=== PATIENT | female | born 1955 | race Caucasian/White ===

== ENCOUNTER 2018-05-04 13:07 | Emergency (ER) | payer OTHER, SELFPAY ==
[2018-05-04 13:10] VITALS: BP 155/102; PULSE 60; RESP 20; TEMP 36.9; O2SAT 97
--- NOTE | 2018-05-04 13:20 | ED.ALLEREA ---
HPI - Allergic Reaction General Chief complaint: Allergic Reaction Stated complaint: BEE STING, SWELLING/ITCHY,TOUNGE/THROAT ITCHY NUMB Time Seen by Provider: 05/04/18 13:20 Source: patient Mode of arrival: ambulatory Limitations: no limitations History of Present Illness HPI narrative: 62-year-old female here for evaluation of a bee sting to her right hand. Patient states she has never had a reaction to bee stings in the past. She states that she was stung on the back of her right hand. Went to the pharmacy and took 125 mg Benadryl. Has had pain and swelling to the back of her right hand. She also states that she started to developed some problems breathing and feeling like her tongue was becoming swollen. She has no problems tolerating oral intake. Speaking in full sentences. Related Data Home Medications Medication Instructions Recorded Confirmed MAGNESIUM (#ELITE MAGNESIUM) 1 tab PO DAILY #0 07/14/11 05/04/18 omega 7-apo-xxc-fish oil [Fish Oil] 1,000 mg PO Q DAY #0 09/28/11 05/04/18 multivitamin 1 tab PO DAILY #0 09/28/12 05/04/18 gabapentin [Neurontin] 900 mg PO QDAY #0 02/01/17 05/04/18 cyclobenzaprine 1 tab PO TID PRN 05/04/18 duloxetine 2 cap PO BEDTIME 05/04/18 05/04/18 meloxicam 1 tab PO DAILY 05/04/18 05/04/18 simvastatin 20 mg PO QPM 05/04/18 05/04/18 Allergies Allergy/AdvReac Type Severity Reaction Status Date / Time bee venom protein (honey bee) Allergy Severe Difficulty Verified 05/04/18 13:34 Swallowing Review of Systems Constitutional Denies body ache(s), Denies fatigue, Denies fever(s) and Denies headache(s) Eyes Denies change in vision, Denies irritation, Denies itchy eyes and Denies eye pain ENT Ears, Nose, Mouth, and Throat: Denies dizziness, Denies headache(s), Denies sinus pressure, Denies sore throat, Denies throat swelling and Reports tongue swelling Cardiovascular Denies chest pain and Reports dyspnea (?Very minor ?) Respiratory Denies cough, Reports dyspnea (?Very minor ?) and Denies wheezing Gastrointestinal Gastrointestinal: Denies diarrhea, Denies nausea and Denies vomiting Integumentary/Breasts Comments: Redness and swelling to the back of her right hand Neurologic Denies dizziness and Denies headache(s) Endocrine Denies fatigue Allergic/Immunologic Denies itchy eyes, Denies throat swelling, Reports tongue swelling and Denies wheezing [facility] Family History Father Diabetes mellitus Grandmother Diabetes mellitus Social History Smoking Status: Never smoker Exam Initial Vital Signs Initial Vital Signs: Vital Signs Temperature 98.5 F 05/04/18 13:10 Pulse Rate 60 05/04/18 13:10 Respiratory Rate 20 05/04/18 13:10 Blood Pressure 155/102 H 05/04/18 13:10 Pulse Oximetry 97 05/04/18 13:10 Const General: cooperative, healthy appearing, comfortable, well developed, well groomed and No acute distress Nutritional Appearance: average body habitus Orientation: alert, awake and oriented x3 HENMT Head: normal to inspection, normocephalic and atraumatic Nose: external nose normal Face and sinus: normal facial exam Mouth: oral mucosae normal, lip normal, tongue normal, oropharynx normal and moist mucous membranes Eyes General: appearance normal, both eyes and all related structures Conjunctivae: conjunctivae normal Sclera: sclerae normal Resp Effort & Inspection: normal respiratory effort Auscultation: clear to auscultation bilaterally Cardio Rate: regular rate Rhythm: regular rhythm Pulses: radial pulses present Skin Other: Swelling to the dorsum of the right hand from the MCP joints to just proximal to the wrist. Also with some erythema in this area. No stinger seen. Neuro Other: Sensation intact to light touch right upper extremity Extrem General: normal to inspection, full ROM and capillary refill normal Course Orders Ordered: Discontinued Medications Diphenhydramine HCl (Benadryl) 25 mg IV NOW ONE Stop: 05/04/18 13:21 Last Admin: 05/04/18 13:27 Dose: 25 mg Famotidine (Pepcid) 20 mg in 50 mls @ 200 mls/hr IV NOW ONE Stop: 05/04/18 13:34 Last Infusion: 05/04/18 14:01 Dose: 0 mls/hr Admin: 06/21/18 13:27 Dose: 200 mls/hr Methylprednisolone (Solu-Medrol 125 Mg Vial) 125 mg IV NOW ONE Stop: 05/04/18 13:21 Last Admin: 05/04/18 13:27 Dose: 125 mg Vital Signs - 8 hr 05/04/18 13:10 05/04/18 13:48 05/04/18 14:17 Temperature 98.5 F Pulse Rate 60 57 L 57 L Respiratory Rate 20 14 Blood Pressure 155/102 H Blood Pressure [Left Arm] 162/106 H 153/99 H Pulse Oximetry 97 100 100 05/04/18 14:30 Temperature Pulse Rate 59 L Respiratory Rate 11 L Blood Pressure Blood Pressure [Left Arm] 147/98 H Pulse Oximetry 100 MDM - Allergic Reaction MDM Narrative Medical decision making narrative: Patient received steroids and Benadryl here in the emergency department. She did not receive any epinephrine. She reported improvement/resolution in the itching in her feet and also the swelling sensation that she had her tongue. Right hand swelling improved somewhat however was still red. Patient was observed here in the emergency department for period of time. She stated that she felt like she could go home. I am comfortable sending her home as well. She was given return precautions. She was given care instructions with regard to the bee sting. She expressed understanding and agreement with plan Discharge Plan Departure Patient Disposition: Home, Self-Care Clinical Impression: Allergic reaction, Bee sting reaction Instructions: How to Care for an Insect Bite or Sting, DI for Insect Bites and Stings, DI for General Allergic Reactions Activity Restrictions/Additional Instructions: You can use Benadryl like we discussed. Would recommend that you keep ice on the back of your right hand. Return to the emergency department for any new or worsening symptoms Prescriptions: No Action MAGNESIUM (#ELITE MAGNESIUM) 1 tab PO DAILY Qty: 0 RF: 0 omega 2-slz-qdx-fish oil [Fish Oil] 1,000 mg (120 mg-180 mg) Capsule 1,000 mg PO Q DAY Qty: 0 RF: 0 multivitamin Tablet 1 tab PO DAILY Qty: 0 RF: 0 gabapentin [Neurontin] 300 MG capsule 900 mg PO QDAY Qty: 0 RF: 0 cyclobenzaprine 10 mg tablet 1 tab PO TID PRN (Reason: Spasms) RF: 0 meloxicam 15 mg tablet 1 tab PO DAILY RF: 0 simvastatin 20 mg tablet 20 mg PO QPM RF: 0 duloxetine 30 mg capsule,delayed release(DR/EC) 2 cap PO BEDTIME RF: 0
[2018-05-04] MEDS: FAMOTIDINE 20 MG/50 ML PIGGYBACK 200 MG IV (13:27)
[2018-05-04] MEDS: methylPREDNISolone 125 MG/2 ML VIAL IV (13:27)
[2018-05-04] MEDS: diphenhydrAMINE 50 MG/ML VIAL 25 MG IV (13:27)
[2018-05-04 13:48] VITALS: BP 162/106; PULSE 57; RESP 14; O2SAT 100
[2018-05-04 14:17] VITALS: BP 153/99; PULSE 57; O2SAT 100
[2018-05-04 14:30] VITALS: BP 147/98; PULSE 59; RESP 11; O2SAT 100
[2018-05-04 15:02] VITALS: BP 139/95; PULSE 60; RESP 16; O2SAT 96
== END 2018-05-04 15:00 | disposition home or self-care (01) ==
PROVIDERS: Emergency Provider Emergency Medicine; Family Provider Physician Assistant; PCP Physician Assistant
DX: T78.40XA Allergy, unspecified, initial encounter (principal); T63.441A Toxic effect of venom of bees, accidental (unintentional), initial encounter
CPT/HCPCS: 99283; J1200; J2930

== ENCOUNTER → 2018-10-25 15:16 | Outpatient (CLI) | payer OTHER, SELFPAY ==
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
== END ==
PROVIDERS: Family Provider Physician Assistant; PCP Physician Assistant; Visit Provider Student in an Organized Health Care Education/Training Program
DX: T14.90XA Injury, unspecified, initial encounter (principal); V89.2XXA Person injured in unspecified motor-vehicle accident, traffic, initial encounter; M19.012 Primary osteoarthritis, left shoulder; M51.34 Other intervertebral disc degeneration, thoracic region; M47.816 Spondylosis without myelopathy or radiculopathy, lumbar region
CPT/HCPCS: 72050; 72072; 72100; 72220; 73030; 73502

== ENCOUNTER → 2018-10-31 10:52 | Outpatient (CLI) | payer OTHER, SELFPAY ==
--- NOTE | 2018-10-31 | DI.MG.S_ITS ---
BILATERAL DIGITAL SCREENING MAMMOGRAM 3D/2D WITH CAD: 10/31/2018 CLINICAL: Routine screening. Family history of breast cancer. Comparison is made to exams dated: 09/27/2017 mammogram, 09/20/2016 mammogram, and 09/17/2015 mammogram - [facility]. There are scattered fibroglandular elements in both breasts. Current study was also evaluated with a Computer Aided Detection (CAD) system. There is a focal asymmetry in the left breast at 1 o'clock middle depth. No other significant masses, calcifications, or other findings are seen in either breast. IMPRESSION: INCOMPLETE: NEEDS ADDITIONAL IMAGING EVALUATION The focal asymmetry in the left breast is indeterminate. Additional views with possible ultrasound are recommended. This exam was interpreted at Station ID: [id number]. NOTE: For mammograms, a report in lay terms will be sent to the patient. Approximately 15% of breast malignancies will not be visualized mammographically. In the management of a palpable breast mass, a negative mammogram must not discourage biopsy of a clinically suspicious lesion. Electronically Signed By: Genesis arevalo/chhaya:10/31/2018 12:51:30 letter sent: Additional Imaging Needed ACR BI-RADS Category 0: Incomplete [id number]
== END ==
PROVIDERS: Family Provider Physician Assistant; PCP Physician Assistant; Visit Provider Physician Assistant
DX: Z12.31 Encounter for screening mammogram for malignant neoplasm of breast (principal); Z80.3 Family history of malignant neoplasm of breast
CPT/HCPCS: 77063; 77067

== ENCOUNTER → 2018-11-21 12:42 | Outpatient (CLI) | payer OTHER, SELFPAY ==
--- NOTE | 2018-11-21 | DI.MG.S_ITS ---
PROCEDURE: MM SPECIAL VIEW LT COMPARISON: [facility], , YUMI SCREENING MAMMO BI, 10/31/2018, 11:19. INDICATIONS: LEFT BREAST ADDITIONAL VIEWS FINDINGS: IMPRESSION: Dictated by: Oneal Webb M.D. on 11/21/2018 at 18:39 Approved by: Oneal Webb M.D. on 11/21/2018 at 18:39
--- NOTE | 2018-11-21 10:00 | DI.US.S_ITS ---
Patient Name: HÉCTOR VELIZ date: 1955 Sex: F Attending Physician: Melani Indications: Date: 11/21/2018 14:47 At the request of: BRUNO BRADFORD Procedure: US breast LT limited ULTRASOUND OF LEFT BREAST: 11/21/2018 CLINICAL: Patient returns today to evaluate a focal asymmetry in the left breast. Comparison is made to exams dated: 11/21/2018 mammogram, 10/31/2018 mammogram, and 09/27/2017 mammogram - [facility]. Ultrasound of the left breast was performed. Downey scale images of the real-time examination were reviewed. No abnormalities were seen sonographically in the left breast. IMPRESSION: NEGATIVE There is no sonographic evidence of malignancy. A 1 year screening mammogram is recommended. This exam was interpreted at Station ID: [id number]. Electronically Signed By: Oneal espinoza/chhaya:11/21/2018 16:49:10 letter sent: Normal Exam Ultrasound BI-RADS: 1 Negative
== END ==
PROVIDERS: Family Provider Physician Assistant; PCP Physician Assistant; Visit Provider Physician Assistant
DX: R92.8 Other abnormal and inconclusive findings on diagnostic imaging of breast (principal); N64.89 Other specified disorders of breast; Z80.3 Family history of malignant neoplasm of breast
CPT/HCPCS: 76642; 77065; G0279

== ENCOUNTER 2019-03-13 08:15 | Outpatient (RCR) | payer OTHER, SELFPAY ==
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
--- NOTE | 2019-02-20 16:35 | PT.OPPOC ---
Current Diagnoses Pain in left shoulder (02/19/19) Pain in left hip (02/19/19) Cervicalgia (02/19/19) Provider Visit Care Team Role Provider Type Chayito Polo PA-C Family Provider Advanced Sports Team Manager Primary Care Provider Specialty: Internal Medicine Address: [address] [place] [address], [id number] Email: Yajaira Woodson PA-C Attending Provider Physician Specialty: Internal Medicine Address: [address] [place] [address], [id number] Email: Plan Of Care PT-OP-T Assessment and Plan Start: 11/24/18 16:35 Freq: Status: Active Protocol: Document 02/19/19 09:11 LRN (Rec: 02/19/19 09:54 LRN [id number]) Physical Therapy Assessment Goals Four Impairment L hip and LB pain Residential Goal (LTG) Pt will demonstrate decrease pain with improved L hip mobility and strength and improved function per improved Oswestry Disability Index Score. LTG Duration 02/20/19 (02/20/19: GOAL met for pain & NATTY) Three Impairment Decreased L shoulder mobility and strength Short Term Goal (STG) Improve L shoulder painfree AROM. STG Duration 12/29/18 (01/23/19: Goal met for IR/ER). Residential Goal (LTG) Improve L shoulder strength and function per UE Quick Dash Score. LTG Duration 02/20/19 Two Impairment Decreased neck mobility and strength Short Term Goal (STG) Pt will demonstrate improved neck mobility. STG Duration 12/29/18 Residential Goal (LTG) Improve neck strength and function per improved Neck Disability score. LTG Duration 02/20/19 One Impairment Pt lacks self care HEP. Trim Setter Goal (LTG) Pt will be independent in a self care HEP. LTG Duration 02/20/19 Progress Towards Goals Progress Comments Goal #1: Slow progression of HEP due to pt continued c/o soreness in L shoulder & low back. Goal #2 Neck mobility and function (per NDI) has improved. Goal #3 No significant change with UE function per UE QUICKdash. L shoulder strength not assessed. ROM pain is same. Goal #4 GOAL met for pain & NATTY improvement. No pain in L hip, pain now in R hip in area of lipoma. Assessment Summary Assessment The pt has shown some improvement in that she no longer has L hip pain and her pain intensity is decreased in all areas (neck, L shoulder, L hip). She has had onset of now R hip pain that is generally as intense as the pain in her other areas (5/10) . Her neck and back function has improved per Neck and Low Back Disability Index scores. She is beginning to return to her recreational activities ( gardening as tolerated) and has attended one aerobic ex class at the local swimming pool. With return to activities her overall R hip/ back and L shoulder pain has been variable, but at its best pain it is less overall, and at its worst is unchanged. Since the pt has shown improvement in neck/back function it is recommended she continue with skilled physical therapy to work towards further reduction of her pain, improvement in L shoulder and bilateral hip strength as well as mobility, for her return to gardening and household work activities without limitation. Physical Therapy Plan Frequency and Duration Frequency of Treatment 2x/Week Plan of Care Start Date 11/28/18 Plan of Care End Date 04/20/19 Therapeutic Interventions Therapeutic Interventions Aquatic Therapy Balance Training Home Exercise Program Joint Mobilizations Manual Therapy Neuromuscular Re-education Patient/Caregiver Education Self-Care/Home Management Soft Tissue Mobilization Taping Therapeutic Exercises Modalities Cold Pack/Ice Massage Hot Packs Other Therapeutic Interventions E-Stim except in areas of skin carcinomas. Next Visit Focus/Plan Next Note Type Treatment Note Next Visit Plan Check hip, neck, shoulder strength and mobility. Review HEP issued and monitor active hip ext stretch for isolation from trunk extensors . Issue hip ext strengthening & shoulder IR/ER strengthening. Plan of Care Dates Plan of Care Start Date 11/28/18 Plan of Care End Date 04/20/19 Please Sign and Return: I have reviewed this Plan of Care and certify that the skilled therapy services above are required to meet the patient?s needs. Physician Signature Date Printed Name and Credentials Clinical Instructor Signature Printed Name and Credentials
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
== END 2019-03-28 12:37 | disposition home or self-care (01) ==
LOC: PHYS 08:15
PROVIDERS: Family Provider Physician Assistant; PCP Physician Assistant; Visit Provider Student in an Organized Health Care Education/Training Program
DX: M54.2 Cervicalgia (principal); M25.512 Pain in left shoulder; M25.552 Pain in left hip
CPT/HCPCS: 97010; 97014; 97032; 97035; 97110; 97140; 97162; 97535; G0283

== ENCOUNTER → 2019-05-03 10:09 | Outpatient (CLI) | payer OTHER, SELFPAY ==
--- NOTE | 2019-05-03 | DI.RAD.S_ITS ---
PROCEDURE: XR FOOT LT MIN 3V INDICATIONS: LEFT FOOT PAIN TECHNIQUE: 3 views of the foot were acquired. COMPARISON: [facility], , FOOT 3V LEFT, 03/02/2012, 10:17. FINDINGS: Bones: There is an obliquely oriented mildly comminuted fracture evident involving the mid left 5th metatarsal bone. No intra-articular involvement is appreciated. There is no dislocation. There is a subtle vertically oriented lucency evident involving the base of the 4th proximal phalanx which may represent an additional fracture. There is no dislocation. Mild degenerative changes of the midfoot joints are present. Soft tissues: No tibiotalar joint effusion. Soft tissue swelling about the foot is evident. IMPRESSION: 1. Comminuted left 5th metatarsal fracture. 2. Possible subtle fracture involving the base of the proximal phalanx of the 4th toe. Please correlate clinically for focal point tenderness. Dictated by: Nathen Arndt M.D. on 05/03/2019 at 10:52 Approved by: Nathen Arndt M.D. on 05/03/2019 at 10:54
== END ==
PROVIDERS: Family Provider Physician Assistant; PCP Physician Assistant; Visit Provider Internal Medicine
DX: M79.672 Pain in left foot (principal); S92.352A Displaced fracture of fifth metatarsal bone, left foot, initial encounter for closed fracture
CPT/HCPCS: 73630

== ENCOUNTER → 2019-11-19 11:47 | Outpatient (CLI) | payer OTHER, SELFPAY ==
--- NOTE | 2019-11-19 | DI.RAD.S_ITS ---
PROCEDURE: XR HIP W PEL IF DONE RT 2V INDICATIONS: RIGHT HIP PAIN TECHNIQUE: AP pelvis with lateral view(s) of the right hip. [facility], [facility], [facility], 15:44. FINDINGS: Bones: No fractures or dislocations. Pelvic ring appears intact. No suspicious bony lesions. Soft tissues: The visualized bowel gas pattern is normal. No suspicious soft tissue calcifications. IMPRESSION: No trauma known, source of asymmetric right hip pain is not identified. Dictated by: Theo Garrido M.D. on 11/19/2019 at 15:51 Approved by: Theo Garrido M.D. on 11/19/2019 at 15:51
== END ==
PROVIDERS: PCP Physician Assistant; Visit Provider Physician Assistant
DX: M25.551 Pain in right hip (principal)
CPT/HCPCS: 73502

== ENCOUNTER → 2019-12-03 12:55 | Outpatient (CLI) | payer OTHER, SELFPAY ==
--- NOTE | 2019-12-03 | DI.MRI.S_ITS ---
PROCEDURE: MR LUMBAR SPINE WO CON INDICATIONS: LUMBAGO WITH SCIATICA RIGHT SIDE TECHNIQUE: Noncontrast sagittal T1 spin echo and T2 fast echo, sagittal STIR, axial T1 and T2 fast spin echo through the lumbar spine. In cases with scoliosis, additional coronal T2 fast spin echo may be performed. COMPARISON: [facility], , L-SPINE WITHOUT CONTRAST, 04/22/2016, 9:22. FINDINGS: Image quality: Excellent. Alignment and Curvature: Trace retrolisthesis of L3 on L4. Bone Marrow: No fracture. Multilevel degenerative endplate sclerosis and spurring. Diffuse facet arthropathy. Spinal Cord: Conus medullaris terminates at the L1-L2 level. Visualized cord demonstrates normal signal and size. Paraspinous Soft Tissues: No paravertebral masses. L1-L2: Normal appearance. L2-L3: Mild central canal narrowing. Partial effacement of both lateral recesses with bilaterally symmetric appearance. Mild bilateral foraminal stenoses. L3-L4: No central canal narrowing. Partial effacement of both lateral recesses with bilaterally symmetric appearance. No definite foraminal stenosis L4-L5: No central canal or lateral recess narrowing. Mild bilateral foraminal stenoses. L5-S1: No canal or lateral recess narrowing. No foraminal stenosis identified IMPRESSION: Trace retrolisthesis of L3 on L4. Diffuse lumbar spondylosis and facet arthropathy No high-grade canal or foraminal narrowing Mild bilateral foraminal stenoses at L2-L3 and L4-L5 Dictated by: Amandeep Figueredo M.D. on 12/03/2019 at 16:40 Approved by: Amandeep Figueredo M.D. on 12/03/2019 at 16:47
== END ==
PROVIDERS: PCP Physician Assistant; Visit Provider Physician Assistant
DX: M54.41 Lumbago with sciatica, right side (principal); M47.816 Spondylosis without myelopathy or radiculopathy, lumbar region; M48.061 Spinal stenosis, lumbar region without neurogenic claudication; M85.88 Other specified disorders of bone density and structure, other site; Z78.0 Asymptomatic menopausal state
CPT/HCPCS: 72148; 77080

== ENCOUNTER → 2019-12-25 13:38 | Outpatient (ROUT) | payer OTHER, SELFPAY ==
[2019-12-25 14:25] LABS: Alanine Aminotransferase 22 IU/L (<35); Albumin 4.4 g/dL (3.5-5.0); Albumin Globulin Ratio 1.6 (1.0-2.8); Alkaline Phosphatase 58 U/L (38-126); Aspartate Aminotransferase 29 IU/L (14-36); BUN Creatinine Ratio 17.1 (6-22); Bilirubin Total 0.9 mg/dL (0.2-1.3); Blood Urea Nitrogen 12 mg/dL (7-17); Calcium 9.6 mg/dL (8.4-10.2); Carbon Dioxide 31 mmol/L (22-32); Chloride 104 mmol/L (98-107); Cholesterol 208 mg/dL (140-199); Estimated Glomerular Filt Rate > 60.0 mL/min (>60); Globulin 2.7 g/dL (1.7-4.1); Glucose 96 mg/dL (80-110); HDL Cholesterol 50 mg/dL (40-60); HEMOLYSIS 17 (0-50); LDL Cholesterol Calculated 110 mg/dL (<100); Potassium 4.3 mmol/L (3.4-5.1); Sodium 141 mmol/L (137-145); Total Protein 7.1 g/dL (6.3-8.2); Triglycerides 240 mg/dL (35-150)
[2019-12-25 15:42] LABS: Add Manual Diff / Slide Review NO; Basophils Absolute Auto 100 /uL (0-100); Basophils Percent Auto 1.1 % (0-2); Eosinophils Absolute Auto 100 /uL (0-450); Eosinophils Percent Auto 1.4 % (2-4); Hematocrit 46.3 % (36-46); Hemoglobin 15.7 g/dL (12.0-16.0); Lymphocytes Absolute Auto 1800 /uL (1100-4500); Lymphocytes Percent Auto 39.1 % (25-40); Mean Corpuscular HGB Conc 33.8 % (30-36); Mean Corpuscular Hemoglobin 31.7 PG (26-34); Mean Corpuscular Volume 93.7 fL (80-100); Monocytes Absolute Auto 300 /uL (0-900); Neutrophils Absolute Auto 2400 /uL (1500-7000); Neutrophils Percent Auto 51.4 % (50-75); Platelet Count 134 X10^3/uL (150-400); Red Blood Cell Count 4.94 X10^6/uL (4.0-5.2); Red Cell Distribution Width 13.3 % (11.6-14.8); White Blood Cell Count 4.7 X10^3/uL (4.5-11.0)
== END ==
PROVIDERS: PCP Physician Assistant; Visit Provider Physician Assistant
DX: E78.2 Mixed hyperlipidemia (principal)
CPT/HCPCS: 80053; 80061; 85025

== ENCOUNTER 2020-01-22 10:30 | Outpatient (RCR) | payer OTHER, SELFPAY ==
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
--- NOTE | 2019-11-29 17:06 | PT-OP ANOTE ---
Pt cancelled due to snow
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
== END 2020-06-04 10:42 ==
LOC: PHYS 10:30
PROVIDERS: PCP Physician Assistant; Visit Provider Physician Assistant
DX: M54.16 Radiculopathy, lumbar region (principal); M62.81 Muscle weakness (generalized); M25.551 Pain in right hip; M79.604 Pain in right leg
CPT/HCPCS: 97014; 97032; 97110; 97140; 97162; 97535; G0283

== ENCOUNTER → 2020-10-22 17:11 | Outpatient (CLI) | payer OTHER, SELFPAY ==
--- NOTE | 2020-10-22 | DI.MG.S_ITS ---
BILATERAL DIGITAL SCREENING MAMMOGRAM 3D/2D WITH CAD: 10/22/2020 CLINICAL: Routine screening. Family history of breast cancer. Comparison is made to exams dated: 11/21/2018 mammogram, 10/31/2018 mammogram, 09/27/2017 mammogram, 09/20/2016 mammogram, and 09/17/2015 mammogram - [facility]. There are scattered fibroglandular elements in both breasts. Current study was also evaluated with a Computer Aided Detection (CAD) system. There are benign post operative findings in the right breast. No significant masses, calcifications, or other findings are seen in either breast. There has been no significant interval change. IMPRESSION: BENIGN There is no mammographic evidence of malignancy. A 1 year screening mammogram is recommended. This exam was interpreted at Station ID: [id number]. NOTE: For mammograms, a report in lay terms will be sent to the patient. Approximately 15% of breast malignancies will not be visualized mammographically. In the management of a palpable breast mass, a negative mammogram must not discourage biopsy of a clinically suspicious lesion. Electronically Signed By: Oneal espinoza/chhaya:10/23/2020 08:00:38 letter sent: Normal Exam ACR BI-RADS Category 2: Benign Finding(s) [id number]
== END ==
PROVIDERS: PCP Physician Assistant; Referring Provider Physician Assistant; Visit Provider Physician Assistant
DX: Z12.31 Encounter for screening mammogram for malignant neoplasm of breast (principal); Z80.3 Family history of malignant neoplasm of breast
CPT/HCPCS: 77063; 77067

== ENCOUNTER → 2021-02-25 09:53 | Outpatient (CLI) | payer OTHER, SELFPAY ==
[2021-02-25 11:14] LABS: Add Manual Diff / Slide Review NO; Basophils Absolute Auto 0 /uL (0-100); Basophils Percent Auto 0.8 % (0-2); Eosinophils Absolute Auto 200 /uL (0-450); Eosinophils Percent Auto 3.9 % (2-4); Hemoglobin 14.6 g/dL (12.0-16.0); Lymphocytes Absolute Auto 1800 /uL (1100-4500); Lymphocytes Percent Auto 39.1 % (25-40); Mean Corpuscular HGB Conc 33.3 % (30-36); Mean Corpuscular Hemoglobin 30.8 PG (26-34); Mean Corpuscular Volume 92.7 fL (80-100); Monocytes Absolute Auto 300 /uL (0-900); Monocytes Percent Auto 7.4 % (3-14); Neutrophils Absolute Auto 2200 /uL (1500-7000); Neutrophils Percent Auto 48.8 % (50-75); Platelet Count 125 X10^3/uL (150-400); Red Blood Cell Count 4.74 X10^6/uL (4.0-5.2); Red Cell Distribution Width 13.1 % (11.6-14.8); White Blood Cell Count 4.5 X10^3/uL (4.5-11.0)
[2021-02-25 11:48] LABS: Alanine Aminotransferase 19 IU/L (<35); Albumin 4.1 g/dL (3.5-5.0); Albumin Globulin Ratio 1.7 (1.0-2.8); Alkaline Phosphatase 61 U/L (38-126); Aspartate Aminotransferase 26 IU/L (14-36); BUN Creatinine Ratio 25.4 (6-22); Bilirubin Total 0.6 mg/dL (0.2-1.3); Blood Urea Nitrogen 16 mg/dL (7-17); Calcium 9.2 mg/dL (8.4-10.2); Carbon Dioxide 24 mmol/L (22-32); Chloride 107 mmol/L (98-107); Cholesterol 162 mg/dL (140-199); Estimated Glomerular Filt Rate > 60.0 mL/min (>60); Globulin 2.4 g/dL (1.7-4.1); Glucose 90 mg/dL (80-110); HDL Cholesterol 63 mg/dL (40-60); HEMOLYSIS < 15 (0-50); LDL Cholesterol Calculated 75 mg/dL (<100); Potassium 4.2 mmol/L (3.4-5.1); Sodium 139 mmol/L (137-145); Total Protein 6.5 g/dL (6.3-8.2); Triglycerides 118 mg/dL (35-150)
== END ==
PROVIDERS: PCP Physician Assistant; Referring Provider Physician Assistant; Visit Provider Physician Assistant
DX: E78.2 Mixed hyperlipidemia (principal)
CPT/HCPCS: 36415; 80053; 80061; 85025

== ENCOUNTER 2021-06-19 16:11 | Emergency (ER) | payer OTHER, SELFPAY ==
[2021-06-19 16:20] VITALS: BP 170/96; PULSE 74; O2SAT 96
--- NOTE | 2021-06-19 16:21 | ED.ALLEREA ---
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 She states she started feeling some thickening and closure of her throat and had no access to her epinephrine so she presented here. She denies any dizziness, weakness or lightheadedness. She denies swelling of her face, lips or tongue. She denies any trouble breathing. She has had no rash or urticaria. She denies nausea, vomiting or diarrhea Related Data Home Medications Medication Instructions Recorded Confirmed MAGNESIUM (#ELITE MAGNESIUM) 1 tab PO DAILY #0 07/14/11 08/28/19 omega 9-qjw-soj-fish oil 1,000 mg 1,000 mg PO Q DAY #0 09/28/11 08/28/19 (120 mg-180 mg) capsule (Fish Oil) multivitamin 1 tab PO DAILY #0 09/28/12 08/28/19 gabapentin 300 mg capsule 900 mg PO QDAY #0 02/01/17 08/28/19 (Neurontin) cyclobenzaprine 10 mg tablet 1 tab PO TID PRN 05/04/18 08/28/19 duloxetine 30 mg capsule,delayed 2 cap PO BEDTIME 05/04/18 08/28/19 release meloxicam 15 mg tablet 1 tab PO DAILY 05/04/18 08/28/19 simvastatin 20 mg tablet 20 mg PO QPM 05/04/18 08/28/19 epinephrine [EpiPen 2-Harsha] IM 08/28/19 08/28/19 Previous Rx's Medication Instructions Recorded epinephrine 0.3 mg/0.3 mL 0.3 mg IM Q5-15M PRN #2 ea 06/19/21 injection, auto-injector (EpiPen 2-Harsha) prednisone 20 mg tablet 20 mg PO DAILY #5 tab 06/19/21 Allergies Allergy/AdvReac Type Severity Reaction Status Date / Time bee venom protein (honey bee) Allergy Severe Difficulty Verified 06/19/21 16:24 Swallowing Review of Systems Review of Systems Narrative: GENERAL: Denies chills, fatigue, malaise, fever, sweats. HEENT: See HPI RESPIRATORY: See HP CARDIOVASCULAR: Denies chest pain, palpitations, orthopnea, edema, GASTROINTESTINAL: Denies nausea, vomiting, abdominal pain, diarrhea, constipation, melena. : Denies dysuria, frequency, incontinence, hematuria, urinary retention. MUSCULOSKELETAL: denies weakness, joint pain, or bony pain SKIN: Denies rash, skin lesions, or other NEUROLOGIC: Denies weakness, headache, numbness, change in speech, confusion, seizures, incoordination. PSYCHIATRIC: No concerning psychosocial issues. 12 point review of systems is negative except for those stated above Patient History Medical History Age related osteoporosis Fibromyalgia Surgical History Status post right breast lumpectomy Family History Father Diabetes mellitus Grandmother Diabetes mellitus Social History Smoking Status: Never smoker Smoking Status: Never smoker alcohol intake frequency: a few times a week Substance Use Type: does not use Exam Narrative Exam Narrative: GENERAL: [65] year old patient appears stated age. Well-developed patient, in mild distress. HEAD: Atraumatic. Normocephalic. EYES: Pupils equal round and reactive. Extraocular motions intact. No scleral icterus. No injection or drainage. ENT: Nose without bleeding, purulent drainage. Throat without erythema, tonsillar hypertrophy or exudate. Airway patent. NECK: Trachea midline. Non tender CARDIOVASCULAR: Regular rate and rhythm without murmurs, gallops, or rubs. RESPIRATORY: Clear to auscultation. Breath sounds equal bilaterally. No wheezes, rales, or rhonchi. GASTROINTESTINAL: Abdomen soft, non-tender, nondistended. EXTREMITIES: No edema or joint tenderness. BACK: Nontender without deformity or crepitance. No flank tenderness. NEURO: AOx3. SKIN: No rash or erythema of visible areas Initial Vital Signs Initial Vital Signs: Vital Signs Pulse Rate 74 06/19/21 16:20 Blood Pressure 170/96 H 06/19/21 16:20 Pulse Oximetry 96 06/19/21 16:20 Course Orders Ordered: Discontinued Medications Diphenhydramine HCl (Diphenhydramine 50 Mg/Ml Vial) 25 mg IV NOW ONE Stop: 06/19/21 16:22 Last Admin: 06/19/21 16:30 Dose: 25 mg Documented by: VERÓNICA Epinephrine HCl (Epinephrine 1 Mg/Ml) 0.5 mg IM NOW ONE Stop: 06/19/21 16:22 Last Admin: 06/19/21 16:26 Dose: 0.5 mg Documented by: VERÓNICA Methylprednisolone (Methylprednisolone 125 Mg/2 Ml Vial) 125 mg IV NOW ONE Stop: 06/19/21 16:22 Last Admin: 06/19/21 16:30 Dose: 125 mg Documented by: VERÓNICA Reevaluation(s) Reevaluation #1: Patient observed for 90 minutes after administration of above-stated therapies. She has no ongoing symptoms and feels great. Extensive return precautions given medications sent to pharmacy. Vital Signs Vital signs: Vital Signs - 8 hr 06/19/21 16:20 06/19/21 16:22 06/19/21 16:30 Temperature 98.6 F Pulse Rate 74 67 71 Respiratory Rate 16 19 Blood Pressure 170/96 H 170/96 H 163/81 H Pulse Oximetry 96 97 95 06/19/21 16:52 06/19/21 17:00 06/19/21 17:30 Temperature Pulse Rate 70 70 77 Respiratory Rate 21 20 25 H Blood Pressure 151/81 H 133/70 141/66 H Pulse Oximetry 98 96 98 Discharge Plan Departure Patient Disposition: Home Clinical Impression: Allergic reaction Qualifiers: Encounter type: initial encounter Qualified Code(s): T78.40XA - Allergy, unspecified, initial encounter Instructions: Anaphylaxis Activity Restrictions/Additional Instructions: *You have been diagnosed with [allergic reaction due to bee sting] *What to do: *Please continue to take your regular medications as directed. [x ] New medication prescriptions sent to your pharmacy: [[facility]] [ ] New medication written as a paper prescription [ ] No new medications given *Please follow up with your primary care provider in 2-3 days, call for an appointment. Let them know you were seen in the Emergency Department and that we ask that you be seen in follow up. We will electronically transmit a record of today's note if your PCP is in our system *If you do not have a primary care provider please contact the [facility] Resource line at [phone]. They will ask some questions about your medical history and help get you set up with a doctor in the community. *Return to Emergency Department if you should have any new, worsening or concerning symptoms, such as [fever greater than 101 F, shaking chills, worsening pain, persistent vomiting or other bothersome symptoms] Prescriptions: New epinephrine [EpiPen 2-Harsha] 0.3 mg/0.3 mL auto-injector 0.3 mg IM Q5-15M PRN (Reason: anaphylaxis) Qty: 2 RF: 0 prednisone 20 mg tablet 20 mg PO DAILY Qty: 5 RF: 0 No Action epinephrine IM RF: 0 MAGNESIUM (#ELITE MAGNESIUM) 1 tab PO DAILY Qty: 0 RF: 0 omega 4-qxg-suw-fish oil [Fish Oil] 1,000 mg (120 mg-180 mg) Capsule 1,000 mg PO Q DAY Qty: 0 RF: 0 multivitamin Tablet 1 tab PO DAILY Qty: 0 RF: 0 gabapentin [Neurontin] 300 MG capsule 900 mg PO QDAY Qty: 0 RF: 0 cyclobenzaprine 10 mg tablet 1 tab PO TID PRN (Reason: Spasms) RF: 0 meloxicam 15 mg tablet 1 tab PO DAILY RF: 0 simvastatin 20 mg tablet 20 mg PO QPM RF: 0 duloxetine 30 mg capsule,delayed release(DR/EC) 2 cap PO BEDTIME RF: 0 Referrals: Chayito Polo PA-C [Primary Care Provider] -
[2021-06-19 16:22] VITALS: BP 170/96; PULSE 67; RESP 16; TEMP 37; O2SAT 97; BMI 29.0
[2021-06-19] MEDS: EPINEPHrine 1 MG/ML 0.5 MG IM (16:26)
[2021-06-19 16:30] VITALS: BP 163/81; PULSE 71; RESP 19; O2SAT 95
[2021-06-19] MEDS: methylPREDNISolone 125 MG/2 ML VIAL IV (16:30)
[2021-06-19] MEDS: diphenhydrAMINE 50 MG/ML VIAL 25 MG IV (16:30)
[2021-06-19 16:52] VITALS: BP 151/81; PULSE 70; RESP 21; O2SAT 98
[2021-06-19 17:00] VITALS: BP 133/70; PULSE 70; RESP 20; O2SAT 96
[2021-06-19 17:30] VITALS: BP 141/66; PULSE 77; RESP 25; O2SAT 98
== END 2021-06-19 17:46 | disposition home or self-care (01) ==
PROVIDERS: Emergency Provider Emergency Medicine; PCP Physician Assistant
DX: T63.441A Toxic effect of venom of bees, accidental (unintentional), initial encounter (principal); T78.2XXA Anaphylactic shock, unspecified, initial encounter
CPT/HCPCS: 96372; 96374; 96375; 99284; J0171; J1200; J2930

== ENCOUNTER → 2021-08-09 10:09 | Outpatient (CLI) | payer OTHER, SELFPAY ==
[2021-08-09 10:35] LABS: COVID19 -Nasal RAPID Negative (Negative)
== END ==
PROVIDERS: PCP Physician Assistant; Visit Provider Physician Assistant
DX: Z20.822 Contact with and (suspected) exposure to COVID-19 (principal); J02.9 Acute pharyngitis, unspecified; R05 Cough
CPT/HCPCS: 87635

== ENCOUNTER → 2021-10-23 16:39 | Outpatient (CLI) | payer OTHER, SELFPAY ==
--- NOTE | 2021-10-23 16:40 | DI.MG.S_ITS ---
BILATERAL DIGITAL SCREENING MAMMOGRAM 3D/2D WITH CAD: 10/23/2021 CLINICAL: Routine screening. Family history of breast cancer. Comparison is made to exams dated: 10/22/2020 mammogram, 11/21/2018 ultrasound, and 10/31/2018 mammogram - [facility]. There are scattered fibroglandular elements in both breasts. Current study was also evaluated with a Computer Aided Detection (CAD) system. There are benign post operative findings in the right breast. No significant masses, calcifications, or other findings are seen in either breast. There has been no significant interval change. IMPRESSION: BENIGN There is no mammographic evidence of malignancy. A 1 year screening mammogram is recommended. This exam was interpreted at Station ID: [id number]. NOTE: For mammograms, a report in lay terms will be sent to the patient. Approximately 15% of breast malignancies will not be visualized mammographically. In the management of a palpable breast mass, a negative mammogram must not discourage biopsy of a clinically suspicious lesion. Electronically Signed By: Oneal espinoza/chhaya:10/23/2021 17:02:06 letter sent: Normal Exam ACR BI-RADS Category 2: Benign Finding(s) 3342F
== END ==
PROVIDERS: PCP Physician Assistant; Referring Provider Physician Assistant; Visit Provider Physician Assistant
DX: Z12.31 Encounter for screening mammogram for malignant neoplasm of breast (principal); Z80.3 Family history of malignant neoplasm of breast
CPT/HCPCS: 77063; 77067

== ENCOUNTER → 2022-01-20 09:15 | Outpatient (CLI) | payer OTHER, SELFPAY ==
[2022-01-20 10:23] LABS: COVID19 -Nasal RAPID Negative (Negative)
== END ==
PROVIDERS: PCP Physician Assistant; Visit Provider Surgery
DX: Z01.812 Encounter for preprocedural laboratory examination (principal); Z20.822 Contact with and (suspected) exposure to COVID-19
CPT/HCPCS: 87635; C9803

== ENCOUNTER 2022-01-21 10:16 | Day surgery (SDC) | payer OTHER, SELFPAY ==
--- NOTE | 2022-01-21 | PATH_ITS ---
[facility] Accession Number: [id number] . 01 Material submitted: . PART A: colon - SIGMOID POLYP PART B: rectum - RECTAL POLYP . 02 Diagnosis: A. Sigmoid Colon, Polyp, Biopsy: Hyperplastic polyp. . B. Rectum, Polyp, Biopsy: Tubular adenoma. [facility] 01/25/2022 1316 Local . 02 Electronically signed: . Taya Mak MD, Pathologist NPI- [id number] . 01 Gross description: . Part A: SIGMOID POLYP: Received in formalin are 2 fragment(s) of tyson, soft tissue measuring 0.3 x 0.3 x 0.3 cm to 0.2 x 0.2 x 0.1 cm submitted entirely in 1 cassette(s) Part B: RECTAL POLYP: Received in formalin is 1 fragment(s) of tyson, soft tissue measuring 0.3 x 0.2 x 0.2 cm submitted entirely in 1 cassette(s) /[facility] 01/24/2022 1835 Local . 02 Pathologist provided ICD-10: D12.8 . 02 CPT . 719172, 059170 Specimen Comment: A courtesy copy of this report has been sent to [phone] Performed at: 01 [facility] [address] [facility], [place], [place] [id number] MD Aleksey Chau MD Phone: [phone] Performed at: 02 [facility] [address] [place], [place] [id number] MD Taya Mak MD Phone: [phone]
[2022-01-21 10:31] VITALS: BP 149/91; PULSE 67; RESP 16; TEMP 36.3; O2SAT 98; BMI 29.0
[2022-01-21] MEDS: LACTATED RINGERS 1,000 ML 42 ML IV (10:38)
--- NOTE | 2022-01-21 10:45 | PM.HP.1 ---
History of Present Illness History of Present Illness Date Patient Seen: 01/21/22 Time Patient Seen: 10:45 Chief complaint: SDC Narrative: The patient is a 66-year-old woman who is due for colon cancer screening. She believes she had a colonoscopy about 10 years ago. She believes she may have had polyps on a prior colonoscopy. She thinks her mom may have had colon cancer but she is not sure what type exactly it was. She denies rectal bleeding or melena. Patient History Medical History Age related osteoporosis Fibromyalgia Surgical History Status post right breast lumpectomy Family & Social History Family History Father Diabetes mellitus Grandmother Diabetes mellitus Social History: household members friend(s) Tobacco & Substance use: Smoking Status Never smoker alcohol intake current alcohol intake frequency a few times a week Substance Use Type does not use Meds Home Medications and Allergies Home Medications Medication Instructions Recorded Confirmed Type MAGNESIUM (#ELITE MAGNESIUM) 1 tab PO DAILY #0 07/14/11 01/21/22 History omega 4-ytz-kxi-fish oil 1,000 mg 1,000 mg PO Q DAY #0 09/28/11 01/21/22 History (120 mg-180 mg) capsule (Fish Oil) multivitamin 1 tab PO DAILY #0 09/28/12 01/21/22 History gabapentin 300 mg capsule 900 mg PO QDAY #0 02/01/17 01/21/22 History (Neurontin) duloxetine 30 mg capsule,delayed 2 cap PO BEDTIME 05/04/18 01/21/22 History release simvastatin 20 mg tablet 20 mg PO QAM 05/04/18 01/21/22 History epinephrine [EpiPen 2-Harsha] IM 08/28/19 08/09/21 History epinephrine 0.3 mg/0.3 mL 0.3 mg (0.3 mL) IM Q5-15M PRN #2 ea 06/19/21 08/09/21 Rx injection, auto-injector (EpiPen 2-Harsha) Allergies Allergy/AdvReac Type Severity Reaction Status Date / Time bee venom protein (honey bee) Allergy Severe Difficulty Verified 08/09/21 10:00 Swallowing Exam Vital Signs (past 8 hours): - 01/21/22 10:31 Temperature 97.4 F L Pulse Rate 67 Respiratory Rate 16 Blood Pressure 149/91 H Pulse Oximetry 98 Oxygen Delivery Method Room Air Const General: healthy appearing Resp Effort & Inspection: normal respiratory effort GI Palpation: soft Assessment & Plan Assessment and plan (1) Colon cancer screening: Status: Acute Plan Risks and benefits of colonoscopy reviewed. We will proceed. COVID-19 COVID-19 status: Negative Result date/Date tested (Pos, Neg/Pending): 01/20/22 Time Spent With Patient Critical Care time: I spent a total of [] minutes of critical care time on this patient's care today; this time is exclusive of procedural time.
[2022-01-21] MEDS: MIDAZOLAM 5 MG/5 ML VIAL IV (11:24)
[2022-01-21] MEDS: fentaNYL 250 MCG/5 ML INJ IV (11:24)
--- NOTE | 2022-01-21 11:39 | PM.OP.COLON ---
Operative Date/Time/Diagnoses Date of procedure: 01/21/22 Time of procedure: 11:39 Pre-op diagnosis: Colon cancer screening Post-op diagnosis: same Procedure & Clinicians Study performed: Colonoscopy Same procedure as scheduled: Yes Surgeon: Holden Agrawal Procedure Notes SCOAP/Timeout: Yes Procedure in detail: Procedure: The patient was brought to the endoscopy suite, placed in left lateral decubitus position. The patient was connected to monitoring devices. A time-out was performed. Sedation was administered. Once the patient was adequately sedated, a digital rectal exam was performed and was normal. The scope was then inserted and advanced to the cecum where the appendiceal orifice was identified and photographed. The scope was then slowly withdrawn over greater than 6 minutes. Mucosa was thoroughly inspected. There were 2 small polyps in the sigmoid colon removed with cold forceps. There was 1 small polyp in the rectum removed with cold forceps. The scope was retroflexed in the rectum. No abnormalities noted. The scope was straightened and removed. The patient was awakened and brought to recovery. Versed: 9 mg Fentanyl: 175 mcg EBL: 5 mL Findings: Small polyps in the sigmoid and rectum. Scope withdrawal time: 11 Sedation minutes: 48 Post-procedure Recommendations: Will call with biopsy results Disposition: PACU
[2022-01-21 11:41] VITALS: BP 123/48; PULSE 61; RESP 16; TEMP 36.7; O2SAT 96
[2022-01-21 11:46] VITALS: BP 90/60; PULSE 69; RESP 16; O2SAT 96
[2022-01-21 11:51] VITALS: BP 123/80; PULSE 62; RESP 14; O2SAT 96
== END 2022-01-21 12:15 | disposition home or self-care (01) ==
PROVIDERS: PCP Physician Assistant; Referring Provider Surgery; Visit Provider Surgery
PROC: 0DJD8ZZ Inspection of Lower Intestinal Tract, Via Natural or Artificial Opening Endoscopic (ICD-10-PCS; CPT 45378; principal; 2022-01-21 11:30)
DX: Z12.11 Encounter for screening for malignant neoplasm of colon (principal); D12.8 Benign neoplasm of rectum
CPT/HCPCS: 45380; 99152; 99153; J2250; J3010

== ENCOUNTER → 2022-01-29 11:48 | Outpatient (CLI) | payer OTHER, SELFPAY | PROVIDERS: PCP Physician Assistant; Visit Provider Nurse Practitioner Family | DX: R30.0 Dysuria (principal); N94.9 Unspecified condition associated with female genital organs and menstrual cycle | CPT/HCPCS: 87077; 87086; 87186; 87210 ==

== ENCOUNTER 2022-06-08 08:04 | Emergency (ER) | payer OTHER, SELFPAY ==
[2022-06-08 08:07] VITALS: BP 155/89; PULSE 78; RESP 18; TEMP 36.2; O2SAT 98; BMI 27.8
--- NOTE | 2022-06-08 09:46 | ED_ITS ---
HPI - Skin/Abscess/Foreign Bdy General Chief complaint: Skin/Abscess/Foreign Body Stated complaint: covid+, under breath rash/itchy Time Seen by Provider: 06/08/22 09:36 Source: patient Mode of arrival: Ambulatory Limitations: no limitations History of Present Illness HPI narrative: Patient is a 66-year-old healthy female who presents with rash under her breasts bilaterally. She says she was diagnosed with COVID about 10 days ago. She started paxlovid the following day she developed a rash on her shoulders was pruritic in nature she took some Benadryl it went away it has moved around to different areas of her body. The rash appeared a few days after the Paxlovid, she has applied topical cortisone cream and Benadryl which she says has improved it. However it is still persisting and now seems to be under both breasts. Worse on the left. No other signs or symptoms at this time. Related Data Home Medications Medication Instructions Recorded Confirmed MAGNESIUM (#ELITE MAGNESIUM) 1 tab PO DAILY ##0 07/14/11 01/29/22 omega 2-mqo-vyz-fish oil 1,000 mg 1,000 mg PO Q DAY ##0 09/28/11 01/29/22 (120 mg-180 mg) capsule (Fish Oil) multivitamin 1 tab PO DAILY ##0 09/28/12 01/29/22 gabapentin 300 mg capsule 900 mg PO QDAY ##0 02/01/17 01/29/22 (Neurontin) duloxetine 30 mg capsule,delayed 2 cap PO BEDTIME 05/04/18 01/29/22 release simvastatin 20 mg tablet 20 mg PO QAM 05/04/18 01/29/22 epinephrine [EpiPen 2-Harsha] IM 08/28/19 01/29/22 Previous Rx's Medication Instructions Recorded epinephrine 0.3 mg/0.3 mL 0.3 mg (0.3 mL) IM Q5-15M PRN 06/19/21 injection, auto-injector (EpiPen anaphylaxis #2 ea 2-Harsha) prednisone 20 mg tablet 40 mg PO DAILY #10 tabs 06/08/22 Allergies Allergy/AdvReac Type Severity Reaction Status Date / Time bee venom protein (honey bee) Allergy Severe Difficulty Verified 06/08/22 08:11 Swallowing Review of Systems Review of Systems Narrative: GENERAL: Denies chills, fatigue, malaise, fever, sweats, travel HEENT: Denies sinus pain, ear pain, sore throat, difficulty swallowing, neck pain RESPIRATORY: Denies dyspnea, cough, wheezing, hemoptysis, sputum. CARDIOVASCULAR: Denies chest pain, palpitations, orthopnea, edema GASTROINTESTINAL: Denies nausea, vomiting, abdominal pain, diarrhea, constipation, melena. : Denies dysuria, frequency, incontinence, hematuria, urinary retention, flank pain. MUSCULOSKELETAL: Denies weakness, joint pain, or bony pain SKIN: See HPI NEUROLOGIC: Denies weakness, dizziness, headache, numbness, change in speech, confusion PSYCHIATRIC: No concerning psychosocial issues. 12 point review of systems is negative except for those stated above and HPI Patient History Medical History Age related osteoporosis Fibromyalgia Surgical History Status post right breast lumpectomy Family History Father Diabetes mellitus Grandmother Diabetes mellitus Social History household members: friend(s) Smoking Status: Never smoker alcohol intake: current Smoking Status: Never smoker alcohol intake frequency: a few times a week Substance Use Type: does not use Exam Initial Vital Signs Initial Vital Signs: Vital Signs Temperature 97.2 F L 06/08/22 08:07 Pulse Rate 78 06/08/22 08:07 Respiratory Rate 18 06/08/22 08:07 Blood Pressure 155/89 H 06/08/22 08:07 Pulse Oximetry 98 06/08/22 08:07 Oxygen Delivery Method 06/08/22 08:07 GENERAL: Alert well-appearing 66-year-old female HEENT: Head atraumatic,EOMI, pupils reactive, face symmetric, moist mucous membranes CARDIOVASCULAR: Regular rate and rhythm without murmurs, rubs or gallops. RESPIRATORY: Breath sounds equal bilaterally, no wheezes rales or rhonchi. ABDOMEN: Soft, nontender. Normoactive bowel sounds all 4 quadrants. No guarding or rebound. EXTREMITIES: Normal range of motion, no clubbing or edema. Neurovascularly intact NEUROLOGICAL: Alert and oriented x4. SKIN: Erythematous papular like rash under bilateral breasts. No urticaria. No vesicles. Course Vital Signs Vital signs: Vital Signs - 8 hr 06/08/ 08:07 Temperature 97.2 F L Pulse Rate 78 Respiratory Rate 18 Blood Pressure 155/89 H Pulse Oximetry 98 Oxygen Delivery Method Room Air MDM - Skin/Abscess/Foreign Bdy MDM Narrative Medical decision making narrative: Patient has rash which started after new medication. This is unlikely shingles seems to be moving around is very pruritic in nature it is also improving with topical steroid cream and Benadryl. Probably allergic in nature. No sign of anaphylaxis. Possibly from paxlovid. Discharge Plan Departure Patient Disposition: Home Clinical Impression: Allergic drug rash Instructions: DI for Hives, DI for Adverse Drug Reaction -- Other Activity Restrictions/Additional Instructions: *You have been diagnosed with drug reaction *What to do: Probable allergic type rash. Although it is little atypical. *Continue to take medications as directed Prednisone 40 mg once a day for 5 days--> SENT TO [facility] Benadryl 25 mg every 6 hours if needed for itching *Follow up with your primary care provider in 2-3 days or call [phone] *Return to ER if you should have increasing rash, shortness of breath or any new, worsening or concerning symptoms Prescriptions: New prednisone 20 mg tablet 40 mg PO DAILY Qty: 10 0RF No Action epinephrine IM MAGNESIUM (#ELITE MAGNESIUM) 1 tab PO DAILY Qty: 0 omega 3-hqm-eim-fish oil [Fish Oil] 1,000 mg (120 mg-180 mg) Capsule 1,000 mg PO Q DAY Qty: 0 multivitamin Tablet 1 tab PO DAILY Qty: 0 gabapentin [Neurontin] 300 MG capsule 900 mg PO QDAY Qty: 0 simvastatin 20 mg tablet 20 mg PO QAM Label Comments: take 1 tablet by mouth every evening duloxetine 30 mg capsule,delayed release(DR/EC) 2 cap PO BEDTIME epinephrine [EpiPen 2-Harsha] 0.3 mg/0.3 mL auto-injector 0.3 mg IM Q5-15M PRN (Reason: anaphylaxis) Qty: 2 0RF Rx Instructions: do not exceed 3 doses per episode Referrals: Chayito Polo PA-C [Primary Care Provider] - Visit Report Forms: Patient Portal/API
[2022-06-08 10:00] VITALS: BP 125/83; PULSE 64; O2SAT 97
== END 2022-06-08 10:01 | disposition home or self-care (01) ==
PROVIDERS: Emergency Provider Emergency Medicine; PCP Physician Assistant
DX: L27.0 Generalized skin eruption due to drugs and medicaments taken internally (principal); U07.1 COVID-19
CPT/HCPCS: 99281

== ENCOUNTER → 2022-08-02 10:41 | Outpatient (CLI) | payer OTHER, SELFPAY | PROVIDERS: PCP Physician Assistant; Visit Provider Family Medicine | DX: I87.2 Venous insufficiency (chronic) (peripheral) (principal); L97.825 Non-pressure chronic ulcer of other part of left lower leg with muscle involvement without evidence of necrosis; R60.0 Localized edema; L08.89 Other specified local infections of the skin and subcutaneous tissue; R51.9 Headache, unspecified | CPT/HCPCS: 11042; 87070; 87075; 87205; 99204; 99213 ==

== ENCOUNTER 2022-08-02 12:01 | Emergency (ER) | payer OTHER, SELFPAY ==
[2022-08-02] VITALS (21 sets, daily range): BP systolic 151–203; BP diastolic 82–106; PULSE 59–78; RESP 16–23; TEMP 36.1; O2SAT 96–99; BMI 27.7
--- NOTE | 2022-08-02 12:34 | DI.RAD.S_ITS ---
PROCEDURE: XR CHEST 1V INDICATIONS: chest pain TECHNIQUE: One view of the chest was acquired. COMPARISON: None. FINDINGS: Surgical changes and devices: None. Lungs and pleura: Lungs are clear. No pleural effusions or pneumothorax. Mediastinum: Mediastinal contours appear normal. Heart size is normal. Bones and chest wall: No suspicious bony lesions. Overlying soft tissues appear unremarkable. IMPRESSION: No acute cardiopulmonary disease. Dictated by: Santo Oliveros M.D. on 08/02/2022 at 12:58 Approved by: Santo Oliveros M.D. on 08/02/2022 at 12:59
[2022-08-02 12:59] LABS: Add Manual Diff / Slide Review NO; Basophils Absolute Auto 100 /uL (0-100); Basophils Percent Auto 0.9 % (0-2); Eosinophils Absolute Auto 100 /uL (0-450); Eosinophils Percent Auto 0.5 % (2-4); Hematocrit 47.3 % (36-46); Hemoglobin 16.3 g/dL (12.0-16.0); Lymphocytes Absolute Auto 2400 /uL (1100-4500); Lymphocytes Percent Auto 22.3 % (25-40); Mean Corpuscular HGB Conc 34.5 % (30-36); Mean Corpuscular Hemoglobin 31.6 PG (26-34); Mean Corpuscular Volume 91.4 fL (80-100); Monocytes Absolute Auto 800 /uL (0-900); Monocytes Percent Auto 7.6 % (3-14); Neutrophils Absolute Auto 7300 /uL (1500-7000); Neutrophils Percent Auto 68.7 % (50-75); Platelet Count 141 X10^3/uL (150-400); Red Blood Cell Count 5.18 X10^6/uL (4.0-5.2); Red Cell Distribution Width 13.6 % (11.6-14.8); White Blood Cell Count 10.6 X10^3/uL (4.5-11.0)
[2022-08-02 13:10] LABS: Prothrombin Time 10.9 SECONDS (10.1-12.7)
--- NOTE | 2022-08-02 13:10 | DI.CT.S_ITS ---
PROCEDURE: CT HEAD/BRAIN WO CON INDICATIONS: headache and HTN TECHNIQUE: Noncontrast 4.5 mm thick angled axial sections acquired from the foramen magnum to the vertex, with coronal and sagittal reformats. For radiation dose reduction, the following was used: automated exposure control, adjustment of mA and/or kV according to patient size. COMPARISON: None. FINDINGS: Image quality: Excellent. CSF spaces: Basal cisterns are patent. No extra-axial fluid collections. The ventricles are symmetric in size and shape. Brain: No intracranial bleeds or masses. There is cerebral volume loss for age, with resultant ventricular and sulcal prominence. There are periventricular and deep white matter chronic small vessel ischemic changes. There is intracranial internal carotid artery atherosclerosis. Skull and face: Calvarium and visualized facial bones appear intact, without suspicious lesions. Sinuses: Visualized sinuses and mastoids are clear. IMPRESSION: No acute intracranial process is seen. No acute intracranial hemorrhage is seen. Dictated by: Migel Jama M.D. on 08/02/2022 at 13:03 Approved by: Migel Jama M.D. on 08/02/2022 at 13:03
--- NOTE | 2022-08-02 13:10 | ED_ITS ---
HPI - General Adult General Chief complaint: Hypertension Stated complaint: sent by for a high BP ,headaches Time Seen by Provider: 08/02/22 12:57 Source: patient Mode of arrival: Ambulatory Limitations: no limitations History of Present Illness HPI narrative: Patient is a 66-year-old female. Does have a diagnosis of melanoma and fibromyalgia but no other medical diagnosis per her report who was sent here fro m the walk-in clinic for evaluation of a headache and also high blood pressure. She states she is had a headache for the past 3 weeks. Has been a constant headache. She goes to bed with an night and wakes up within the morning. Is in the front and is a sharp pain. She has been taking Tylenol which does take the edge off but then as the Tylenol wears off her headache returns. She denies chest pain. No shortness of breath. No vision changes. No sore throat. No lightheadedness. No abdominal pain or nausea vomiting or urinary symptoms no rashes. Numbness or tingling in her extremities. She does have a wound on her left lower extremity after a injury that is still healing. Related Data Home Medications Medication Instructions Recorded Confirmed MAGNESIUM (#ELITE MAGNESIUM) 1 tab PO DAILY ##0 07/14/11 01/29/22 omega 6-pyp-uae-fish oil 1,000 mg 1,000 mg PO Q DAY ##0 09/28/11 01/29/22 (120 mg-180 mg) capsule (Fish Oil) multivitamin 1 tab PO DAILY ##0 09/28/12 01/29/22 gabapentin 300 mg capsule 900 mg PO QDAY ##0 02/01/17 01/29/22 (Neurontin) duloxetine 30 mg capsule,delayed 2 cap PO BEDTIME 05/04/18 01/29/22 release simvastatin 20 mg tablet 20 mg PO QAM 05/04/18 01/29/22 epinephrine [EpiPen 2-Harsha] IM 08/28/19 01/29/22 Previous Rx's Medication Instructions Recorded epinephrine 0.3 mg/0.3 mL 0.3 mg (0.3 mL) IM Q5-15M PRN 06/19/21 injection, auto-injector (EpiPen anaphylaxis #2 ea 2-Harsha) prednisone 20 mg tablet 40 mg PO DAILY #10 tabs 06/08/22 Allergies Allergy/AdvReac Type Severity Reaction Status Date / Time bee venom protein (honey bee) Allergy Severe Difficulty Verified 06/08/22 08:11 Swallowing Review of Systems Review of Systems ROS Unobtainable: All systems reviewed & are unremarkable except as noted in HPI and below Patient History Medical History Age related osteoporosis Fibromyalgia Surgical History Status post right breast lumpectomy Family History Father Diabetes mellitus Grandmother Diabetes mellitus Social History household members: friend(s) Smoking Status: Never smoker alcohol intake: current Smoking Status: Never smoker alcohol intake frequency: a few times a week Substance Use Type: does not use Exam Initial Vital Signs Initial Vital Signs: Vital Signs Temperature 96.9 F L 08/02/22 12:25 Pulse Rate 78 08/02/22 12:25 Respiratory Rate 16 08/02/22 12:25 Blood Pressure 199/106 H 08/02/22 12:25 Pulse Oximetry 97 08/02/22 12:25 Oxygen Delivery Method 08/02/22 12:25 Const General: cooperative, healthy appearing and comfortable [facility] Head: normal to inspection and normocephalic Eyes General: Yes appearance normal, both eyes and all related structures Resp Effort & Inspection: normal respiratory effort Auscultation: clear to auscultation bilaterally Cardio Rate: regular rate Rhythm: regular rhythm GI Inspection: normal to inspection Palpation: soft and No tender Skin General: no rashes or lesions noted Neuro General: patient alert, patient awake, patient oriented x3 and moves all extremities Cognition: normal cognition Speech: speech normal Extrem General: normal to inspection, capillary refill normal and No edema Psych Appearance: grossly normal and well kempt Scores [facility] [place] coma scale eye opening: Spontaneous [place] coma scale verbal response: Orientated [place] coma scale motor response: Obey commands [place] coma scale total score: 15 Course Orders Ordered: ED Orders 08/02/22 12:34 XR chest 1V Stat EKG-12 Lead Stat 08/02/22 12:50 Complete Blood Count AUTO DIFF Stat Comprehensive Metabolic Panel Stat Lipase Stat Magnesium Stat Partial Thromboplastin Time Stat Prothrombin Time INR Stat Troponin & CK Cardiac Panel Stat 08/02/22 13:10 CT head/brain wo con Stat Discontinued Medications Acetaminophen (Acetaminophen 325 Mg Tablet) 650 mg PO NOW ONE Stop: 08/02/22 14:56 Last Admin: 08/02/22 15:04 Dose: 650 mg Documented By: RAHEEL Diphenhydramine HCl (Diphenhydramine 50 Mg/Ml Vial) 25 mg IV NOW ONE Stop: 08/02/22 16:37 Last Admin: 08/02/22 16:48 Dose: 25 mg Documented By: SB Ketorolac Tromethamine (Ketorolac 30 Mg/Ml Vial) 30 mg IV NOW ONE Stop: 08/02/22 16:37 Last Admin: 08/02/22 16:47 Dose: 30 mg Documented By: RAHEEL Lisinopril (Lisinopril 10 Mg Tablet) 10 mg PO NOW ONE Stop: 08/02/22 13:11 Last Admin: 08/02/22 13:16 Dose: 10 mg Documented By: [facility] Metoclopramide HCl (Metoclopramide 10 Mg/2 Ml Inj) 10 mg IV NOW ONE Stop: 08/02/22 16:37 Last Admin: 08/02/22 16:47 Dose: 10 mg Documented By: RAHEEL Vital Signs Vital signs: Vital Signs - 8 hr 08/02/22 12:25 08/02/22 12:44 08/02/22 12:45 Temperature 96.9 F L Pulse Rate 78 66 64 Respiratory Rate 16 Blood Pressure 199/106 H Pulse Oximetry 97 98 99 Oxygen Delivery Method Room Air 08/02/22 12:45 08/02/22 13:16 08/02/22 13:00 Temperature Pulse Rate 61 Respiratory Rate Blood Pressure 203/106 H 174/93 H 193/105 H Pulse Oximetry Oxygen Delivery Method 08/02/22 13:00 08/02/22 13:19 08/02/22 13:19 Temperature Pulse Rate 59 L 62 Respiratory Rate 19 23 Blood Pressure 174/93 H Pulse Oximetry 98 99 Oxygen Delivery Method 08/02/22 13:30 08/02/22 13:30 08/02/22 13:48 Temperature Pulse Rate 61 Respiratory Rate 18 Blood Pressure 182/100 H 189/100 H Pulse Oximetry 96 Oxygen Delivery Method 08/02/22 13:48 08/02/22 14:00 08/02/22 14:30 Temperature Pulse Rate 65 63 63 Respiratory Rate 17 18 20 Blood Pressure 187/101 H Pulse Oximetry 99 97 98 Oxygen Delivery Method 08/02/22 14:54 08/02/22 14:54 08/02/22 15:00 Temperature Pulse Rate 67 Respiratory Rate 18 Blood Pressure 187/101 H 182/101 H Pulse Oximetry 99 Oxygen Delivery Method 08/02/22 15:00 08/02/22 15:43 08/02/22 15:43 Temperature Pulse Rate 63 61 Respiratory Rate 18 23 Blood Pressure 189/101 H Pulse Oximetry 99 99 Oxygen Delivery Method 08/02/22 16:00 08/02/22 16:00 08/02/22 16:30 Temperature Pulse Rate 62 61 Respiratory Rate 18 16 Blood Pressure 183/96 H Pulse Oximetry 99 98 Oxygen Delivery Method 08/02/22 16:34 08/02/22 16:34 08/02/22 17:00 Temperature Pulse Rate 62 59 L Respiratory Rate 16 17 Blood Pressure 177/89 H Pulse Oximetry 96 98 Oxygen Delivery Method 08/02/22 17:01 08/02/22 17:01 08/02/22 17:30 Temperature Pulse Rate 61 60 Respiratory Rate 20 16 Blood Pressure 196/98 H Pulse Oximetry 98 99 Oxygen Delivery Method 08/02/22 17:31 08/02/22 17:31 Temperature Pulse Rate 62 Respiratory Rate 21 Blood Pressure 169/82 H Pulse Oximetry 99 Oxygen Delivery Method Medical Decision Making Lab Data Lab results reviewed: Yes I reviewed the patient's lab results. Result diagrams: 08/02/22 12:50 08/02/22 12:50 Labs: Lab Results 08/02/22 08/02/22 08/02/22 Range/Units 12:50 12:50 12:50 WBC 10.6 (4.5-11.0) X10^3/uL RBC 5.18 (4.0-5.2) X10^6/uL Hgb 16.3 H (12.0-16.0) g/dL Hct 47.3 H (36-46) % MCV 91.4 (80-100) fL MCH 31.6 (26-34) PG MCHC 34.5 (30-36) % RDW 13.6 (11.6-14.8) % Plt Count 141 L (150-400) X10^3/uL Neut % (Auto) 68.7 (50-75) % Lymph % (Auto) 22.3 L (25-40) % [place] % (Auto) 7.6 (3-14) % Eos % (Auto) 0.5 L (2-4) % Baso % (Auto) 0.9 (0-2) % Neut # (Auto) 7300 H (2943-0835) /uL Lymph # (Auto) 2400 (6482-0309) /uL [place] # (Auto) 800 (0-900) /uL Eos # (Auto) 100 (0-450) /uL Baso # (Auto) 100 (0-100) /uL PT 10.9 (10.1-12.7) SECONDS INR 1.0 (0.9-1.3) APTT 29 (26-36) SECONDS Sodium 137 (137-145) mmol/L Potassium 3.9 (3.4-5.1) mmol/L Chloride 98 (98-107) mmol/L Carbon Dioxide 27 (22-32) mmol/L BUN 12 (7-17) mg/dL Creatinine 0.85 (0.52-1.04) mg/dL Estimated GFR > 60 (>60) mL/min BUN/Creatinine Ratio 14.1 (6-22) Glucose 115 H (80-110) mg/dL Calcium 9.9 (8.4-10.2) mg/dL Magnesium 2.0 (1.6-2.3) mg/dL Total Bilirubin 1.3 (0.2-1.3) mg/dL AST 25 (14-36) IU/L ALT 23 (<35) IU/L Alkaline Phosphatase 81 (38-126) U/L Total Creatine Kinase 104 (30-135) U/L CK-MB (CK-2) 2.67 H (<2.37) ng/mL CK-MB (CK-2) Rel Index 2.6 (1.5-5.0) % Troponin I < 0.012 (0.01-0.034) ng/mL Total Protein 8.1 (6.3-8.2) g/dL Albumin 4.8 (3.5-5.0) g/dL Globulin 3.3 (1.7-4.1) g/dL Albumin/Globulin Ratio 1.5 (1.0-2.8) Lipase 78 (23-300) U/L Imaging Data Chest x-ray: Radiologist's Impression: [address] [address] XRay Report Signed Patient: Pamela Eason MR#: [id number] : 1955 Acct:[id number] Age/Sex: 66 / F Date of Service: 08/02/22 Loc: ED Accession Number: [id number] ?? Procedure: XR chest 1V Ordering Provider: Anthony Quiros D.O. PROCEDURE:? XR CHEST 1V ? INDICATIONS:? chest pain ? TECHNIQUE:? One view of the chest was acquired.? ? COMPARISON:? None. ? FINDINGS:? ? Surgical changes and devices:? None.? ? Lungs and pleura:? Lungs are clear.? No pleural effusions or pneumothorax.? ? Mediastinum:? Mediastinal contours appear normal.? Heart size is normal.? ? Bones and chest wall:? No suspicious bony lesions.? Overlying soft tissues appear unremarkable.? ? IMPRESSION:? No acute cardiopulmonary disease. ? ? Dictated by: Santo Oliveros M.D. on 08/02/2022 at 12:58 ? ? Approved by: Santo Oliveros M.D. on 08/02/2022 at 12:59?? CT scan - head: Radiologist's Impression: [place] [address] CT Scan Report Signed Patient: Pamela Eason MR#: [id number] : 1955 Acct:[id number] Age/Sex: 66 / F Date of Service: 08/02/22 Loc: ED Accession Number: [id number] ?? Procedure: CT head/brain wo con Ordering Provider: Anthony Quiros D.O. PROCEDURE:? CT HEAD/BRAIN WO CON ? INDICATIONS:? headache and HTN ? TECHNIQUE:? Noncontrast 4.5 mm thick angled axial sections acquired from the foramen magnum to the vertex, with coronal and sagittal reformats.? For radiation dose reduction, the following was used:? automated exposure control, adjustment of mA and/or kV according to patient size.? ? COMPARISON:? None. ? FINDINGS:? Image quality:? Excellent.? ? CSF spaces:? Basal cisterns are patent.? No extra-axial fluid collections.? The ventricles are symmetric in size and shape.? ? Brain:? No intracranial bleeds or masses.? There is cerebral volume loss for age, with resultant ventricular and sulcal prominence.? There are periventricular and deep white matter chronic small vessel ischemic changes.? There is intracranial internal carotid artery atherosclerosis.? ? Skull and face:? Calvarium and visualized facial bones appear intact, without suspicious lesions.? ? Sinuses:? Visualized sinuses and mastoids are clear.? ? IMPRESSION:? ? No acute intracranial process is seen.? ? No acute intracranial hemorrhage is seen.? ? ? Dictated by: Migel Jama M.D. on 08/02/2022 at 13:03 ? ? Approved by: Migel Jama M.D. on 08/02/2022 at 13:03? ECG Data Attestation: I personally reviewed and interpreted this ECG as follows: Interpretation: Sinus rhythm Ventricular rate of 64 Normal axis Normal QRS Normal QTC No ST T wave changes MDM Narrative Medical decision making narrative: Patient's blood pressure did improve with time and a single dose of lisinopril however this did not seem to improve her headache. Her EKG was unremarkable. CT scan of her head was unremarkable. Kidney function is unremarkable. She is not in acute CHF. After Reglan and Benadryl and Toradol her headache significantly improved. She is a normal neurologic exam. Had a discussion with her regarding her blood pressure. She will most likely require blood pressure medication in the future however she does not take her blood pressure at home on a regular basis. She does have a blood pressure cuff and I advised that she start doing this and recording her numbers. Given the fact that she was in some significant discomfort here I feel that we should wait for her to take her blood pressure when she is not in discomfort to get accurate readings of what her baseline blood pressure is before starting medication. This is why we are not starting the medicine out of the emergency department. She has an appointment with her primary doctor in approximately 10 days. She will take her blood pressure on a daily basis. She was given very strict return precautions. She will take these readings into her primary doctor and will discuss potential medication treatment. Discharge Plan Departure Patient Disposition: Home Clinical Impression: Hypertension, Headache Instructions: DI for High Blood Pressure Activity Restrictions/Additional Instructions: I recommend that you take your blood pressure at home on a daily basis like we discussed and record these numbers. Bring them into your primary doctor visit t hat you have coming up in the next couple days. Return to the emergency department for any new or worsening symptoms like we discussed. Prescriptions: No Action epinephrine IM MAGNESIUM (#ELITE MAGNESIUM) 1 tab PO DAILY Qty: 0 omega 6-ifn-azy-fish oil [Fish Oil] 1,000 mg (120 mg-180 mg) Capsule 1,000 mg PO Q DAY Qty: 0 multivitamin Tablet 1 tab PO DAILY Qty: 0 gabapentin [Neurontin] 300 MG capsule 900 mg PO QDAY Qty: 0 simvastatin 20 mg tablet 20 mg PO QAM Label Comments: take 1 tablet by mouth every evening duloxetine 30 mg capsule,delayed release(DR/EC) 2 cap PO BEDTIME prednisone 20 mg tablet 40 mg PO DAILY Qty: 10 0RF epinephrine [EpiPen 2-Harsha] 0.3 mg/0.3 mL auto-injector 0.3 mg IM Q5-15M PRN (Reason: anaphylaxis) Qty: 2 0RF Rx Instructions: do not exceed 3 doses per episode Referrals: Chayito Polo PA-C [Primary Care Provider] -
[2022-08-02 13:13] LABS: PTT Partial Thromboplastin Tim 29 SECONDS (26-36)
[2022-08-02] MEDS: lisinopriL 10 MG TABLET PO (13:16)
[2022-08-02 13:19] LABS: Alanine Aminotransferase 23 IU/L (<35); Albumin 4.8 g/dL (3.5-5.0); Albumin Globulin Ratio 1.5 (1.0-2.8); Alkaline Phosphatase 81 U/L (38-126); Aspartate Aminotransferase 25 IU/L (14-36); BUN Creatinine Ratio 14.1 (6-22); Bilirubin Total 1.3 mg/dL (0.2-1.3); Blood Urea Nitrogen 12 mg/dL (7-17); Calcium 9.9 mg/dL (8.4-10.2); Carbon Dioxide 27 mmol/L (22-32); Chloride 98 mmol/L (98-107); Creatine Kinase 104 U/L (30-135); Estimated Glomerular Filt Rate > 60 mL/min (>60); Globulin 3.3 g/dL (1.7-4.1); Glucose 115 mg/dL (80-110); HEMOLYSIS < 15 (0-50); Lipase 78 U/L (23-300); Potassium 3.9 mmol/L (3.4-5.1); Sodium 137 mmol/L (137-145); Total Protein 8.1 g/dL (6.3-8.2)
[2022-08-02 13:29] LABS: Troponin I < 0.012 ng/mL (0.01-0.034)
[2022-08-02 13:34] LABS: CKMB % Relative Index 2.6 % (1.5-5.0); Creatine Kinase MB 2.67 ng/mL (<2.37)
--- NOTE | 2022-08-02 14:56 | PC.NURSE ---
reports headache. Dr Quiros aware, will order medications
[2022-08-02] MEDS: ACETAMINOPHEN 325 MG TABLET 650 MG PO (15:04)
[2022-08-02] MEDS: KETOROLAC 30 MG/ML VIAL IV (16:47)
[2022-08-02] MEDS: METOCLOPRAMIDE 10 MG/2 ML INJ IV (16:47)
[2022-08-02] MEDS: diphenhydrAMINE 50 MG/ML VIAL 25 MG IV (16:48)
== END 2022-08-02 18:30 | disposition home or self-care (01) ==
PROVIDERS: Emergency Provider Emergency Medicine; PCP Physician Assistant
DX: I10 Essential (primary) hypertension (principal); R51.9 Headache, unspecified; R07.9 Chest pain, unspecified; I87.2 Venous insufficiency (chronic) (peripheral); L97.825 Non-pressure chronic ulcer of other part of left lower leg with muscle involvement without evidence of necrosis; R60.0 Localized edema; L08.89 Other specified local infections of the skin and subcutaneous tissue
CPT/HCPCS: 11042; 36415; 70450; 71045; 80053; 82550; 82553; 83690; 83735; 84484; 85025; 85610; 85730; 87070; 87075; 87205; 93005; 93010; 96374; 96375; 99213; 99284; J1200; J1885; J2765

== ENCOUNTER → 2022-08-10 09:15 | Outpatient (CLI) | payer OTHER, SELFPAY | PROVIDERS: PCP Physician Assistant; Visit Provider Family Medicine | DX: S81.812S Laceration without foreign body, left lower leg, sequela (principal); L97.825 Non-pressure chronic ulcer of other part of left lower leg with muscle involvement without evidence of necrosis; I87.2 Venous insufficiency (chronic) (peripheral); R60.0 Localized edema; R51.9 Headache, unspecified | CPT/HCPCS: 11042 ==

== ENCOUNTER → 2022-08-12 08:45 | Outpatient (CLI) | payer OTHER, SELFPAY | PROVIDERS: PCP Physician Assistant; Referring Provider Physician Assistant; Visit Provider Family Medicine | DX: I87.2 Venous insufficiency (chronic) (peripheral) (principal); L97.825 Non-pressure chronic ulcer of other part of left lower leg with muscle involvement without evidence of necrosis | CPT/HCPCS: 29581 ==

== ENCOUNTER → 2022-08-17 11:21 | Outpatient (CLI) | payer OTHER, SELFPAY | PROVIDERS: PCP Physician Assistant; Visit Provider Family Medicine | DX: I87.2 Venous insufficiency (chronic) (peripheral) (principal); S81.812S Laceration without foreign body, left lower leg, sequela; L97.825 Non-pressure chronic ulcer of other part of left lower leg with muscle involvement without evidence of necrosis; R60.0 Localized edema | CPT/HCPCS: 11042 ==

== ENCOUNTER → 2022-08-24 09:51 | Outpatient (CLI) | payer OTHER, SELFPAY | PROVIDERS: PCP Physician Assistant; Visit Provider Family Medicine | DX: I87.2 Venous insufficiency (chronic) (peripheral) (principal); L97.825 Non-pressure chronic ulcer of other part of left lower leg with muscle involvement without evidence of necrosis; R60.0 Localized edema; R51.9 Headache, unspecified; Z86.16 Personal history of COVID-19 | CPT/HCPCS: 11042 ==

== ENCOUNTER → 2022-08-27 10:51 | Outpatient (CLI) | payer OTHER, SELFPAY ==
--- NOTE | 2022-08-27 | DI.MRI.S_ITS ---
PROCEDURE: MR HEAD/BRAIN WO/W CON INDICATIONS: Acute intractable headaches TECHNIQUE: Noncontrast axial T1 spin echo, axial T2 fast spin echo, sagittal and axial FLAIR, coronal T2 fast spin echo, axial gradient echo, axial diffusion and ADC through the brain. After the administration of contrast, axial and coronal and sagittal 3D VIBE or T1 spin echo with fat saturation through the brain. COMPARISON: None. FINDINGS: Image quality: Excellent. CSF Spaces: Basal cisterns are patent. No extra-axial fluid collections. Ventricles are normal in size and shape. Brain: No intracranial masses or hemorrhage. [place]/white matter interface is normal. Brainstem appears normal. Diffusion-weighted images demonstrate no acute infarct. Normal intravascular flow voids are present. Enlarged bifrontal perivascular spaces noted in the white matter without enhancement. Moderate atrophy and white matter chronic ischemic change noted as well Skull and face: Calvarial marrow is normal in signal. Orbits appear normal. Bilateral intraocular lens replacements noted. Sinuses: Sinuses and mastoids appear clear. IMPRESSION: Atrophy and chronic ischemic change without acute infarct, hemorrhage or mass lesion Approved by: Kedar Alfonso M.D. on 08/27/2022 at 12:46
== END ==
PROVIDERS: PCP Physician Assistant; Referring Provider Physician Assistant; Visit Provider Physician Assistant
DX: R51.9 Headache, unspecified (principal)
CPT/HCPCS: 70553; A9579

== ENCOUNTER → 2022-08-31 09:50 | Outpatient (CLI) | payer OTHER, SELFPAY | PROVIDERS: PCP Physician Assistant; Visit Provider Family Medicine | DX: L97.925 Non-pressure chronic ulcer of unspecified part of left lower leg with muscle involvement without evidence of necrosis (principal); I87.2 Venous insufficiency (chronic) (peripheral); L97.922 Non-pressure chronic ulcer of unspecified part of left lower leg with fat layer exposed; R60.0 Localized edema | CPT/HCPCS: 36415; 85025; 99213 ==

== ENCOUNTER → 2022-08-31 10:39 | Outpatient (CLI) | payer OTHER, SELFPAY ==
[2022-08-31 12:14] LABS: Add Manual Diff / Slide Review NO; Basophils Absolute Auto 0 /uL (0-100); Basophils Percent Auto 0.8 % (0-2); Eosinophils Absolute Auto 100 /uL (0-450); Hematocrit 41.9 % (36-46); Hemoglobin 14.2 g/dL (12.0-16.0); Lymphocytes Absolute Auto 2300 /uL (1100-4500); Mean Corpuscular HGB Conc 33.8 % (30-36); Mean Corpuscular Hemoglobin 31.2 PG (26-34); Mean Corpuscular Volume 92.3 fL (80-100); Monocytes Absolute Auto 400 /uL (0-900); Monocytes Percent Auto 7.4 % (3-14); Neutrophils Absolute Auto 2500 /uL (1500-7000); Neutrophils Percent Auto 46.8 % (50-75); Platelet Count 114 X10^3/uL (150-400); Red Blood Cell Count 4.54 X10^6/uL (4.0-5.2); Red Cell Distribution Width 13.2 % (11.6-14.8); White Blood Cell Count 5.3 X10^3/uL (4.5-11.0)
== END ==
PROVIDERS: PCP Physician Assistant; Referring Provider Family Medicine; Visit Provider Family Medicine
DX: L97.925 Non-pressure chronic ulcer of unspecified part of left lower leg with muscle involvement without evidence of necrosis (principal)
CPT/HCPCS: 36415; 85025

== ENCOUNTER → 2022-09-07 09:38 | Outpatient (CLI) | payer OTHER, SELFPAY | PROVIDERS: PCP Physician Assistant; Referring Provider Physician Assistant; Visit Provider Plastic Surgery | DX: I87.2 Venous insufficiency (chronic) (peripheral) (principal); L97.822 Non-pressure chronic ulcer of other part of left lower leg with fat layer exposed; R60.0 Localized edema | CPT/HCPCS: 29581; 99212 ==

== ENCOUNTER → 2022-09-14 09:49 | Outpatient (CLI) | payer OTHER, SELFPAY | PROVIDERS: PCP Physician Assistant; Referring Provider Physician Assistant; Visit Provider Family Medicine | DX: I87.2 Venous insufficiency (chronic) (peripheral) (principal); R60.0 Localized edema | CPT/HCPCS: 99212; 99213 ==

== ENCOUNTER → 2022-11-11 15:09 | Outpatient (CLI) | payer OTHER, SELFPAY ==
--- NOTE | 2022-11-11 | DI.MG.S_ITS ---
BILATERAL DIGITAL SCREENING MAMMOGRAM 3D/2D WITH CAD: 11/11/2022 CLINICAL: Routine screening. Family history of breast cancer. Comparison is made to exams dated: 10/23/2021 mammogram, 10/22/2020 mammogram, and 10/31/2018 mammogram - [facility]. There are scattered areas of fibroglandular density in both breasts (category b / 25%-50% glandular tissue). Current study was also evaluated with a Computer Aided Detection (CAD) system. There are benign post operative findings in the right breast. No significant masses, calcifications, or other findings are seen in either breast. There has been no significant interval change. IMPRESSION: BENIGN There is no mammographic evidence of malignancy. A 1 year screening mammogram is recommended. Based on the Tyrer Cuzick model (a risk assessment model) the patient's lifetime risk is 9.8% and her 10 year risk is 5.5%. According to the ACR, ACS, and NCCN guidelines, an annual breast MRI exam along with mammogram is recommended if the patient's lifetime risk is 20% or greater. This exam was interpreted at Station ID: [id number]. NOTE: For mammograms, a report in lay terms will be sent to the patient. Approximately 15% of breast malignancies will not be visualized mammographically. In the management of a palpable breast mass, a negative mammogram must not discourage biopsy of a clinically suspicious lesion. Electronically Signed By: Nataliya sequeira/chhaya:11/12/2022 10:05:19 letter sent: Normal Exam ACR BI-RADS Category 2: Benign Finding(s) 3342F
== END ==
PROVIDERS: PCP Physician Assistant; Referring Provider Physician Assistant; Visit Provider Physician Assistant
DX: Z12.31 Encounter for screening mammogram for malignant neoplasm of breast (principal); Z80.3 Family history of malignant neoplasm of breast
CPT/HCPCS: 77063; 77067

== ENCOUNTER 2022-12-01 17:44 | Emergency (ER) | payer OTHER, SELFPAY ==
[2022-12-01 17:54] VITALS: BP 122/70; PULSE 80; RESP 18; TEMP 36.3; O2SAT 99; BMI 29.0
--- NOTE | 2022-12-01 18:08 | DI.CT.S_ITS ---
PROCEDURE: CT HEAD/BRAIN WO CON INDICATIONS: fall, unknown LOC TECHNIQUE: Noncontrast 4.5 mm thick angled axial sections acquired from the foramen magnum to the vertex, with coronal and sagittal reformats. For radiation dose reduction, the following was used: automated exposure control, adjustment of mA and/or kV according to patient size. COMPARISON: Merged With [facility], CT, CT HEAD/BRAIN WO CON, 08/02/2022, 13:43. Merged With [facility], MR, MR HEAD/BRAIN WO/W CON, 08/27/2022, 11:22. FINDINGS: Image quality: Excellent. CSF spaces: Basal cisterns are patent. No extra-axial fluid collections. Ventricles are normal in size and shape. Brain: No midline shift. No intracranial masses or hemorrhage. [place]-white matter interface is normal. Skull and face: Calvarium and visualized facial bones are intact, without suspicious lesions. Sinuses: Visualized sinuses and mastoids are clear. IMPRESSION: No acute intracranial abnormalities. No skull fractures. Dictated by: Santo Oliveros M.D. on 12/01/2022 at 17:26 Approved by: Santo Oliveros M.D. on 12/01/2022 at 17:26
--- NOTE | 2022-12-01 18:08 | DI.CT.S_ITS ---
PROCEDURE: CT FACIAL BONES WO CON INDICATIONS: fall, unknown LOC TECHNIQUE: Noncontrast 2.5 mm thick axial images acquired from the mandible through the frontal sinuses, with coronal and sagittal reformatting. For radiation dose reduction, the following was used: automated exposure control, adjustment of mA and/or kV according to patient size. COMPARISON: [facility], CT, CT HEAD/BRAIN WO CON, 12/01/2022, 18:15. FINDINGS: Image quality: Excellent. Bones and teeth: Orbital lemons are intact. Sinus lmeons show no fracture or deformity. Nasal bones and septum are intact. Visualized portions of the mandible demonstrate no fractures or subluxation. Zygomatic arches are intact. Pterygoid plates are intact. Visualized portions of the skull base and auditory canals are intact. Sinuses: Paranasal sinuses are aerated, without fluid levels, mucosal thickening, or mucoceles. Mastoid air cells are aerated. Soft tissues: No edema, masses, or fluid collections. No enlarged lymph nodes. No soft tissue lacerations or debris. Vascular: Visualized vascular structures appear normal in the absence of contrast. Bony vascular foramina and canals are intact. IMPRESSION: No facial bone fractures. Dictated by: Santo Oliveros M.D. on 12/01/2022 at 17:40 Approved by: Santo Oliveros M.D. on 12/01/2022 at 17:42
--- NOTE | 2022-12-01 18:19 | ED_ITS ---
HPI - Fall <Taya Ratliff [place], [facility] - Last Filed: 12/01/22 19:26> General Chief Complaint: Fall Stated Complaint: fall, facial injury Time Seen by Provider: 12/01/22 18:12 Source: patient Mode of arrival: Ambulatory History of Present Illness HPI Narrative: This is a 59 female who is otherwise healthy with a history tension on lisinopril who presents the emergency department after a syncopal episode where she injured the left side of her face after she stood too fast and states that she passed out and fell onto the cereal bowl that she was holding. She stood up from a chair, states that she felt lightheaded and tried to make it to the table but she fell down onto the ground prior to getting there sustaining a small injury to the left side of her face. She has a small laceration versus flap to the left cheek. States that she was able to get back up herself without difficulty, denies headache, lightheadedness, dizziness, history of the same, denies chest pain shortness of breath, weakness, or sensation changes. Her last tetanus is up-to-date. She denies any recent illness, denies any jaw pain with jaw movement. Denies any other facial pain. Denies neck pain or other injury. Related Data Home Medications Medication Instructions Recorded Confirmed MAGNESIUM (#ELITE MAGNESIUM) 1 tab PO DAILY ##0 07/14/11 01/29/22 omega 0-fpm-yyd-fish oil 1,000 mg 1,000 mg PO Q DAY ##0 09/28/11 01/29/22 (120 mg-180 mg) capsule (Fish Oil) multivitamin 1 tab PO DAILY ##0 09/28/12 01/29/22 gabapentin 300 mg capsule 900 mg PO QDAY ##0 02/01/17 01/29/22 (Neurontin) duloxetine 30 mg capsule,delayed 2 cap PO BEDTIME 05/04/18 01/29/22 release simvastatin 20 mg tablet 20 mg PO QAM 05/04/18 01/29/22 epinephrine [EpiPen 2-Harsha] IM 08/28/19 01/29/22 Previous Rx's Medication Instructions Recorded epinephrine 0.3 mg/0.3 mL 0.3 mg (0.3 mL) IM Q5-15M PRN 06/19/21 injection, auto-injector (EpiPen anaphylaxis #2 ea 2-Harsha) prednisone 20 mg tablet 40 mg PO DAILY #10 tabs 06/08/22 Allergies Allergy/AdvReac Type Severity Reaction Status Date / Time bee venom protein (honey bee) Allergy Severe Difficulty Verified 12/01/22 18:03 Swallowing Review of Systems <ELISA Solorio - Last Filed: 12/01/22 19:26> Review of Systems ROS Unobtainable: All systems reviewed & are unremarkable except as noted in HPI and below Patient History <ELISA Solorio - Last Filed: 12/01/22 19:26> Medical History Age related osteoporosis Fibromyalgia Surgical History Status post right breast lumpectomy Family History Father Diabetes mellitus Grandmother Diabetes mellitus Social History household members: friend(s) Smoking Status: Never smoker alcohol intake: current Smoking Status: Never smoker alcohol intake frequency: a few times a week Substance Use Type: does not use Exam <ELISA Solorio - Last Filed: 12/01/22 19:26> Narrative Exam Narrative: Reviewed vitals signs and nursing notes. General: cooperative, comfortable, in no acute distress, well groomed HEENT: symmetrical facial expressions, moist mucous membranes, EOMI, PERRLA, Cardiovascular: regular rate and rhythm, no peripheral edema, warm extremities Respiratory: normal effort, able to speak in complete sentences, without wheezing, stridor, or abnormal breath sounds. No retractions or tachypnea. GI: abdomen soft, nontender to palpation, nondistended, without masses, rebound tenderness or exquisite tenderness with exam. MSK: moves all extremities, neurovascularly intact, no weakness, normal tone Skin: brisk capillary refill, without pallor or erythema Neuro: normal speech and cognition, A&O x3, ambulatory, clear speech Psych: mental status is grossly normal, congruent mood, normal affect, pleasant and cooperative Initial Vital Signs Initial Vital Signs: Vital Signs Temperature 97.3 F L 12/01/22 17:54 Pulse Rate 80 12/01/22 17:54 Respiratory Rate 18 12/01/22 17:54 Blood Pressure 122/70 12/01/22 17:54 Pulse Oximetry 99 12/01/22 17:54 Oxygen Delivery Method 12/01/22 17:54 <Charlene Hicks DO - Last Filed: 12/02/22 08:09> Initial Vital Signs Initial Vital Signs: Vital Signs Temperature 97.3 F L 12/01/22 17:54 Pulse Rate 80 12/01/22 17:54 Respiratory Rate 18 12/01/22 17:54 Blood Pressure 122/70 12/01/22 17:54 Pulse Oximetry 99 12/01/22 17:54 Oxygen Delivery Method 12/01/22 17:54 Procedures <ELISA Solorio - Last Filed: 12/01/22 19:26> Laceration Repair Laceration 1: Site: face Side (If applicable): left Size (cm): 2 Description: linear and flap Depth: simple, single layer Local Anesthetic: lidocaine 2% and bupivacaine 0.25% Amount of anesthesia used (mL): 1 Pre-repair: wound explored and irrigated extensively Skin layer closed with: vicryl Skin layer suture size: 5-0 Number of sutures: 4 Technique: simple, interrupted and horizontal mattress Subcutaneous layer closed with: vicryl Subcutaneous layer suture size: 5-0 Number of sutures: 2 Technique: simple, interrupted Scores <ELISA Solorio - Last Filed: 12/01/22 19:26> Citizen [place] CT Head Rule Age <16 years old: No Patient on blood thinners: No Seizure after injury: No Exclusion: Patient NOT Excluded, Proceed to next steps GCS < 15 at 2 hr post trauma: No Suspected open or depressed skull fracture: No Any sign of basilar skull fracture (hemotympanum, raccoon eyes, Back's sign, CSF yahir-/rhinorrhea): No Two or more episodes of vomiting: No Age greater or equal to 65 years: Yes Retrograde amnesia to the event greater or equal to 30 min: No Dangerous Mechanism (pedestrian vs. mv, occupant ejected from mv, fall from >3 ft or > 5 stairs): No Recommendation: Consider CT. The Citizen [place] Head CT Rule cannot rule out need for Imaging. Nexus Score for C-Spine Focal Neurologic deficit present: No Midline spinal tenderness present: No Altered level of conciousness present: No Intoxication present: No Distracting Injury Present: No Nexus Criteria for C-spine: 0 <Charlene Hicks DO - Last Filed: 12/02/22 08:09> [place] CT Head Rule Exclusion: Patient NOT Excluded, Proceed to next steps Recommendation: Consider CT. The Citizen [place] Head CT Rule cannot rule out need for Imaging. Nexus Score for C-Spine Nexus Criteria for C-spine: 0 Course <ELISA Solorio - Last Filed: 12/01/22 19:26> Orders Ordered: Discontinued Medications Acetaminophen (Acetaminophen 325 Mg Tablet) 650 mg PO NOW ONE Stop: 12/01/22 18:16 Last Admin: 12/01/22 18:37 Dose: 650 mg Documented By: MACIEJ Hydrocodone Bitart/Acetaminophen (Hydrocodone/Acet 5/325 Tablet) 1 tab PO NOW ONE Stop: 12/01/22 18:32 Last Admin: 12/01/22 19:15 Dose: 1 tab Documented By: MACIEJ Ketorolac Tromethamine (Ketorolac 10 Mg Tablet) 10 mg PO NOW ONE Stop: 12/01/22 18:16 Last Admin: 12/01/22 18:37 Dose: 10 mg Documented By: MACIEJ Lidocaine HCl (Lidocaine 2% Inj Sdv 5ml) 5 ml INJ INTRA-OP ONE Stop: 12/01/22 18:15 Last Admin: 12/01/22 18:37 Dose: 5 ml Documented By: MACIEJ Ondansetron HCl (Ondansetron 4 Mg Odt) 4 mg SL NOW ONE Stop: 12/01/22 18:25 Last Admin: 12/01/22 18:37 Dose: 4 mg Documented By: MACIEJ Vital Signs Vital signs: Vital Signs - 8 hr 12/01/22 17:54 12/01/22 19:10 Temperature 97.3 F L Pulse Rate 80 60 Respiratory Rate 18 Blood Pressure 122/70 102/66 Pulse Oximetry 99 96 Oxygen Delivery Method Room Air Room Air <Charlene Hicks DO - Last Filed: 12/02/22 08:09> Orders Ordered: Discontinued Medications Acetaminophen (Acetaminophen 325 Mg Tablet) 650 mg PO NOW ONE Stop: 12/01/22 18:16 Last Admin: 12/01/22 18:37 Dose: 650 mg Documented By: MACIEJ Hydrocodone Bitart/Acetaminophen (Hydrocodone/Acet 5/325 Tablet) 1 tab PO NOW ONE Stop: 12/01/22 18:32 Last Admin: 12/01/22 19:15 Dose: 1 tab Documented By: MACIEJ Ketorolac Tromethamine (Ketorolac 10 Mg Tablet) 10 mg PO NOW ONE Stop: 12/01/22 18:16 Last Admin: 12/01/22 18:37 Dose: 10 mg Documented By: MACIEJ Lidocaine HCl (Lidocaine 2% Inj Sdv 5ml) 5 ml INJ INTRA-OP ONE Stop: 12/01/22 18:15 Last Admin: 12/01/22 18:37 Dose: 5 ml Documented By: MACIEJ Ondansetron HCl (Ondansetron 4 Mg Odt) 4 mg SL NOW ONE Stop: 12/01/22 18:25 Last Admin: 12/01/22 18:37 Dose: 4 mg Documented By: MACIEJ Vital Signs Vital signs: Vital Signs - 8 hr 12/01/22 17:54 12/01/22 19:10 Temperature 97.3 F L Pulse Rate 80 60 Respiratory Rate 18 Blood Pressure 122/70 102/66 Pulse Oximetry 99 96 Oxygen Delivery Method Room Air Room Air MDM - Fall <Taya Elias [facility] - Last Filed: 12/01/22 19:26> Imaging Data CT scan - head: Radiologist's Impression: PROCEDURE:? CT HEAD/BRAIN WO CON ? INDICATIONS:? fall, unknown LOC ? TECHNIQUE:? Noncontrast 4.5 mm thick angled axial sections acquired from the foramen magnum to the vertex, with coronal and sagittal reformats.? For radiation dose reduction, the following was used:? automated exposure control, adjustment of mA and/or kV according to patient size.? ? COMPARISON:? [facility], CT, CT HEAD/BRAIN WO CON, 08/02/2022, 13:43.? [facility], MR, MR HEAD/BRAIN WO/W CON, 08/27/2022, 11:22. ? FINDINGS:? Image quality:? Excellent.? ? CSF spaces:? Basal cisterns are patent.? No extra-axial fluid collections.? Ventricles are normal in size and shape.? ? Brain:? No midline shift.? No intracranial masses or hemorrhage.? Downey-white matter interface is normal.? ? Skull and face:? Calvarium and visualized facial bones are intact, without suspicious lesions.? ? Sinuses:? Visualized sinuses and mastoids are clear.? ? IMPRESSION:? No acute intracranial abnormalities.? No skull fractures. ? ? Dictated by: Santo Oliveros M.D. on 12/01/2022 at 17:26 ? ? Approved by: Santo Oliveros M.D. on 12/01/2022 at 17:26 ? CT facial bones: Radiologist's Impression: PROCEDURE:? CT FACIAL BONES WO CON ? INDICATIONS:? fall, unknown LOC ? TECHNIQUE:? Noncontrast 2.5 mm thick axial images acquired from the mandible through the frontal sinuses, with coronal and sagittal reformatting.? For radiation dose reduction, the following was used:? automated exposure control, adjustment of mA and/or kV according to patient size.? ? COMPARISON:? [facility], CT, CT HEAD/BRAIN WO CON, 12/01/2022, 18:15. ? FINDINGS:? Image quality:? Excellent.? ? Bones and teeth:? Orbital lemons are intact.? Sinus lemons show no fracture or deformity.? Nasal bones and septum are intact.? Visualized portions of the mandible demonstrate no fractures or subluxation.? Zygomatic arches are intact.? Pterygoid plates are intact.? Visualized portions of the skull base and auditory canals are intact.? ? Sinuses:? Paranasal sinuses are aerated, without fluid levels, mucosal thickening, or mucoceles.? Mastoid air cells are aerated.? ? Soft tissues:? No edema, masses, or fluid collections.? No enlarged lymph nodes.? No soft tissue lacerations or debris.? ? Vascular:? Visualized vascular structures appear normal in the absence of contrast.? Bony vascular foramina and canals are intact.? ? IMPRESSION:? No facial bone fractures. ? ? Dictated by: Santo Oliveros M.D. on 12/01/2022 at 17:40 ? ? Approved by: Santo Oliveros M.D. on 12/01/2022 at 17:42 ? ECG Data Interpretation: EKG independently reviewed by myself at [1854] reveals normal sinus rhythm at [69] bpm with regular axis and intervals. No STEMI, ST segment changes, arrhythmia, or acute ischemic changes. MDM Narrative Medical decision making narrative: CC: syncope This is a 59 female who is otherwise healthy with a history tension on lisinopril who presents the emergency department after a syncopal episode where she injured the left side of her face after she stood too fast and states that she passed out and fell onto the cereal bowl that she was holding. She stood up from a chair, states that she felt lightheaded and tried to make it to the table but she fell down onto the ground prior to getting there sustaining a small injury to the left side of her face. Differential diagnoses include, but are not limited to: Vasovagal syncope, arrhythmia, orthostatic hypotension, anemia, new medication, hypoglycemia. I have reviewed the patient's vital signs and nursing notes as well as prior records if available. My imaging interpretation: CT head without contrast, CT facial bones without contrast both of them negative for hemorrhage, fracture, or acute abnormality. Clinical Decision Rules/Scores evaluated: Nexus C-spine and Citizen [place] head CT Re-evaluations/Ongoing course of care: 1809 patient brought back to a room, CT came to pick her up for CT head and CT facial bones without contrast. Patient is ambulatory with steady gait, complains of a laceration to the left side of her face as the reason why she came in. Denies any other symptoms at this time, no active bleeding, covered with a bandage. Ordered Tylenol, p.o. Toradol and Zofran for her symptoms, her tetanus is up-to-date, anticipate laceration repair 1829, wound care and cleansing prior to suture repair, patient had a vasovagal episode including diaphoresis, lightheadedness, no change 2 heart rate or syncope. She tolerated this well, was given a drink of water, no vomiting. She denies any nausea or vomiting other than this episode, it cleared quickly, states that she has these every so often. CT head and CT facial bones came back negative for acute abnormality 184 suture repair completed to patient's left face, good wound approximation, used dissolvable sutures and covered with mupirocin ointment and a Band-Aid. Mild abrasion to cheek. No hematoma, no tenderness over TMJ, no hemotympanum, no intraoral injury. Patient's symptoms improved over duration of stay with above-stated therapies. Social considerations that may affect disposition: None Shared decision making: With patient and her family member regarding plan of care Discussion: Patient does not have any focal neuro deficits, denies headache, dizziness, vision changes, weakness, she does have history of vasovagal episodes and was close to a 2nd vasovagal syncopal episode prior to suture repair in the emergency department. She has a normal EKG without signs of ischemia, arrhythmia, or other abnormality. Patient was alert and oriented throughout the course of her stay, without symptoms of concussion, weakness, she is ambulatory, PERRLA and EOMI. She is given strict return precautions, discussed concussion symptoms, encouraged her to stay hydrated and return for any worsening. She did not have any episodes of vomiting. Disposition: see below, along with detailed discharge instructions that have been reviewed with the patient as well as indications for ED re-evaluation and additional outpatient follow-up. Questions are addressed and there is agreement with the plan and for follow-up. Patient is appropriate for outpatient management. MIPS: This encounter doesn't have any diagnosis associated with MIPS criteria. I, ELISA Case, personally performed the services described in the documentation, and it accurately records my words and actions. I collaborated with the ED attending physician for POPEYE level 2, 3, and some level 4s as appropriate. <Charlene Hicks, DO - Last Filed: 12/02/22 08:09> ECG Data Interpretation: EKG independently reviewed by myself at [1854] reveals normal sinus rhythm at [69] bpm with regular axis and intervals. No STEMI, ST segment changes, arrhythmia, or acute ischemic changes. Fabiola: Normal sinus rhythm rate 69 NH interval 150 QRS [address] changes T-wave inversions similar previous EKG 08/02/2022 Discharge Plan Departure Patient Disposition: Home Clinical Impression: Syncope, vasovagal Laceration of face Qualifiers: Encounter type: initial encounter Qualified Code(s): S01.81XA - Laceration without foreign body of other part of head, initial encounter Closed head injury Qualifiers: Encounter type: initial encounter Qualified Code(s): S09.90XA - Unspecified in jury of head, initial encounter Instructions: Fainting, Closed Head Injury, How to Care for Absorbable Sutures Activity Restrictions/Additional Instructions: *You have been diagnosed with vasovagal syncope and almost had another episode after we got started on repairing your laceration. This is the most common type of syncope, today your heart rate and your blood pressure are on the lower end, I wonder if your blood pressure dose should be evaluated however you appear to be perfusing well today. Please stay hydrated, keep your tank full. Follow-up with Kesha-at your next appointment or schedule 1, your sutures will dissolve, keep it covered with a Band-Aid some topical antibiotic ointment, they mupirocin is fine. Cover with sunscreen when it gets nice out. This should start to heal in the next 24 hours, in 5 days it should be well together and without concern for infection. Please return if you develop signs of infection like discharge from the wound, swelling, worsening pain however you have healthy good skin so this is low likelihood. It was a pleasure to meet you both, have a better rest of your day. CTs do not show any acute fracture or intracranial abnormality. AKA no brain bleed or fracture. *What to do: *Please continue to take your regular medications as directed. [ x] New medication prescriptions sent to your pharmacy: [ ] [ ] New medication written as a paper prescription [ ] No new medications given *Please follow up with your primary care provider in 2-3 days, call for an appointment. Let them know you were seen in the Emergency Department and that we asked that you be seen for follow-up. We will electronically transmit a record of today's note if your PCP is in our system *If you do not have a primary care provider please contact [phone] to establish care with one of the [facility] primary care providers. *Return to Emergency Department if you should have any new, worsening, or concerning symptoms, such as [fever greater than 101F, chills, worsening pain, persistent vomiting or other bothersome symptoms]. Prescriptions: No Action epinephrine IM MAGNESIUM (#ELITE MAGNESIUM) 1 tab PO DAILY Qty: 0 omega 2-oig-jfl-fish oil [Fish Oil] 1,000 mg (120 mg-180 mg) Capsule 1,000 mg PO Q DAY Qty: 0 multivitamin Tablet 1 tab PO DAILY Qty: 0 gabapentin [Neurontin] 300 MG capsule 900 mg PO QDAY Qty: 0 simvastatin 20 mg tablet 20 mg PO QAM Label Comments: take 1 tablet by mouth every evening duloxetine 30 mg capsule,delayed release(DR/EC) 2 cap PO BEDTIME prednisone 20 mg tablet 40 mg PO DAILY Qty: 10 0RF epinephrine [EpiPen 2-Harsha] 0.3 mg/0.3 mL auto-injector 0.3 mg IM Q5-15M PRN (Reason: anaphylaxis) Qty: 2 0RF Rx Instructions: do not exceed 3 doses per episode Referrals: Chayito Polo PA-C [Primary Care Provider] - Stand Alone Forms: Patient Portal/API <Charlene Hicks DO - Last Filed: 12/02/22 08:09> Cosign ED Attending Lisa Attestation: I was immediately available in the department for consultation, however I was not consulted. Documentation has been reviewed.
[2022-12-01] MEDS: ONDANSETRON 4 MG ODT SL (18:37)
[2022-12-01] MEDS: LIDOCAINE 2% INJ SDV 5ML 5 ML INJ (18:37)
[2022-12-01] MEDS: KETOROLAC 10 MG TABLET PO (18:37)
[2022-12-01] MEDS: ACETAMINOPHEN 325 MG TABLET 650 MG PO (18:37)
--- NOTE | 2022-12-01 18:51 | PC.NURSE ---
Pt resting in bed and reports nausea. Pt is pale and sweaty. ACCOUNTING LECTURER at bedside.
[2022-12-01 19:10] VITALS: BP 102/66; PULSE 60; O2SAT 96
[2022-12-01] MEDS: HYDROCODONE/ACET 5/325 TABLET 1 TAB PO (19:15)
== END 2022-12-01 19:35 | disposition home or self-care (01) ==
PROVIDERS: Emergency Provider Nurse Practitioner Critical Care Medicine; PCP Physician Assistant
DX: S01.81XA Laceration without foreign body of other part of head, initial encounter (principal); S09.90XA Unspecified injury of head, initial encounter; R55 Syncope and collapse; W18.30XA Fall on same level, unspecified, initial encounter
CPT/HCPCS: 12011; 70450; 70486; 93005; 99284

== ENCOUNTER → 2023-06-01 13:09 | Outpatient (CLI) | payer OTHER, SELFPAY ==
--- NOTE | 2023-06-01 | DI.RAD.S_ITS ---
PROCEDURE: XR CHEST 2V INDICATIONS: COUGH TECHNIQUE: 2 views of the chest were acquired. COMPARISON: [facility], CR, XR CHEST 1V, 08/02/2022, 12:36. FINDINGS: Surgical changes and devices: None. Lungs and pleura: Lungs are clear. No pleural effusions or pneumothorax. Mediastinum: Mediastinal contours are normal. Heart size is normal. Bones and chest wall: No suspicious bony abnormalities. Soft tissues appear unremarkable. IMPRESSION: No acute cardiopulmonary abnormalities or focal airspace disease. Dictated by: Oneal Webb M.D. on 06/01/2023 at 17:22 Approved by: Oneal Webb M.D. on 06/01/2023 at 17:23
== END ==
PROVIDERS: PCP Physician Assistant; Referring Provider Student in an Organized Health Care Education/Training Program; Visit Provider Student in an Organized Health Care Education/Training Program
DX: R05.1 Acute cough (principal)
CPT/HCPCS: 71046

== ENCOUNTER → 2023-11-16 08:56 | Outpatient (CLI) | payer OTHER, SELFPAY ==
--- NOTE | 2023-11-16 08:57 | DI.MG.S_ITS ---
BILATERAL DIGITAL SCREENING MAMMOGRAM 3D/2D WITH CAD: 11/16/2023 CLINICAL: Routine screening. Family history of breast cancer. Comparison is made to exams dated: 11/11/2022 mammogram, 10/23/2021 mammogram, and 10/22/2020 mammogram - [facility]. There are scattered areas of fibroglandular density in both breasts (category b / 25%-50% glandular tissue). Current study was also evaluated with a Computer Aided Detection (CAD) system. There are benign post operative findings in the right breast. No significant masses, calcifications, or other findings are seen in either breast. There has been no significant interval change. IMPRESSION: BENIGN There is no mammographic evidence of malignancy. A 1 year screening mammogram is recommended. Based on the Tyrer Cuzick model (a risk assessment model) the patient's lifetime risk is 9.2% and her 10 year risk is 5.5%. According to the ACR, ACS, and NCCN guidelines, an annual breast MRI exam along with mammogram is recommended if the patient's lifetime risk is 20% or greater. This exam was interpreted at Station ID: [id number]. NOTE: For mammograms, a report in lay terms will be sent to the patient. Approximately 15% of breast malignancies will not be visualized mammographically. In the management of a palpable breast mass, a negative mammogram must not discourage biopsy of a clinically suspicious lesion. Electronically Signed By: Genesis arevalo/chhaya:11/16/2023 12:41:45 letter sent: Normal Exam ACR BI-RADS Category 2: Benign Finding(s) 3342F
== END ==
PROVIDERS: PCP Physician Assistant; Referring Provider Physician Assistant; Visit Provider Physician Assistant
DX: Z12.31 Encounter for screening mammogram for malignant neoplasm of breast (principal); Z80.3 Family history of malignant neoplasm of breast
CPT/HCPCS: 77063; 77067

== ENCOUNTER → 2024-04-10 10:03 | Outpatient (CLI) | payer MEDICARE, SELFPAY | PROVIDERS: PCP Physician Assistant; Visit Provider Physician Assistant Surgical | DX: R30.0 Dysuria (principal) | CPT/HCPCS: 87086 ==

== ENCOUNTER 2024-04-13 16:18 | Emergency (ER) | payer MEDICARE, SELFPAY ==
[2024-04-13] VITALS (7 sets, daily range): BP systolic 122–140; BP diastolic 76–80; PULSE 54–61; RESP 18; TEMP 36.8; O2SAT 92–100; BMI 26.9
[2024-04-13 17:55] LABS: Add Manual Diff / Slide Review NO; Basophils Absolute Auto 100 /uL (0-100); Basophils Percent Auto 1.3 % (0-2); Eosinophils Absolute Auto 100 /uL (0-450); Eosinophils Percent Auto 1.5 % (2-4); Hematocrit 44.4 % (36-46); Hemoglobin 14.7 g/dL (12.0-16.0); Lymphocytes Absolute Auto 2400 /uL (1100-4500); Lymphocytes Percent Auto 44.1 % (25-40); Mean Corpuscular HGB Conc 33.1 % (30-36); Mean Corpuscular Hemoglobin 30.9 PG (26-34); Mean Corpuscular Volume 93.3 fL (80-100); Monocytes Absolute Auto 500 /uL (0-900); Monocytes Percent Auto 9.1 % (3-14); Neutrophils Absolute Auto 2400 /uL (1500-7000); Platelet Count 113 X10^3/uL (150-400); Red Blood Cell Count 4.75 X10^6/uL (4.0-5.2); Red Cell Distribution Width 13.1 % (11.6-14.8); White Blood Cell Count 5.4 X10^3/uL (4.5-11.0)
[2024-04-13 18:06] LABS: Alanine Aminotransferase 22 IU/L (<35); Albumin 4.3 g/dL (3.5-5.0); Albumin Globulin Ratio 1.8 (1.0-2.8); Alkaline Phosphatase 50 U/L (38-126); Aspartate Aminotransferase 28 IU/L (14-36); Bilirubin Total 0.8 mg/dL (0.2-1.3); Blood Urea Nitrogen 17 mg/dL (7-17); Calcium 9.3 mg/dL (8.4-10.2); Carbon Dioxide 32 mmol/L (22-32); Chloride 105 mmol/L (98-107); Estimated Glomerular Filt Rate > 60 mL/min (>60); Globulin 2.4 g/dL (1.7-4.1); Glucose 83 mg/dL (80-110); HEMOLYSIS < 15 (0-50); Lipase 199 U/L (23-300); Potassium 4.9 mmol/L (3.4-5.1); Sodium 136 mmol/L (137-145); Total Protein 6.7 g/dL (6.3-8.2)
[2024-04-13 20:48] LABS: Urine Volume 10mL (spun)
[2024-04-13 20:49] LABS: Bacteria Urine None Seen; RBC Urine None Seen (0-5/HPF); Squamous Epithelial Cell Urine None Seen (0-5/HPF); WBC Urine 1-5/HPF (0-5/HPF)
[2024-04-13 20:50] LABS: Culture Indicated Urine Cult Not Indicated
--- NOTE | 2024-04-13 21:19 | DI.CT.S_ITS ---
PROCEDURE: CT ABDOMEN PELVIS W CON INDICATIONS: 1 WK SUPRAPUBIC/LLQ ABD PAIN TECHNIQUE: After the administration of intravenous contrast, axial sections acquired from the lung bases to the pubic symphysis. Coronal and sagittal reformats were performed. For radiation dose reduction, the following was used: automated exposure control, adjustment of mA and/or kV according to patient size. COMPARISON: None. FINDINGS: Image quality: Diagnostic. Lower Chest: No significant findings. Small hiatal hernia and mild concentric thickening at the gastroesophageal junction. ABDOMEN: Liver: No solid mass. Normal size. Mild hepatic steatosis. Gallbladder: No radiopaque gallstones or wall thickening. Biliary ducts: No biliary dilation. Pancreas: No ductal dilation. Spleen: Size is within normal limits. Adrenal Glands: No adrenal nodules. Kidneys and Ureters: No hydronephrosis. No solid mass. No complex renal cystic lesion which requires follow up. There is a 5 mm nonobstructive stone in the inferior pole of the left kidney. Stomach and Bowel: Normal small bowel and colonic caliber, without significant wall thickening. Fluid-filled small bowel loops demonstrate normal caliber. There is a large amount of stool in colon. Peritoneum: No abnormal intraperitoneal fluid. No free air. Ventral Wall: No significant ventral hernia. Abdominal Nodes: No retroperitoneal or mesenteric adenopathy by size criteria. Vessels: Aorta and inferior vena cava are normal in size. PELVIS: Pelvic Organs: Unremarkable. Bladder: No bladder wall thickening, accounting for underdistention. Pelvic Nodes: No enlarged lymph nodes. Miscellaneous: No inguinal hernias are seen. Bones: No aggressive osseous abnormality. Moderate to severe spondylitic changes in lumbar spine. IMPRESSION: 1. No acute abnormalities in abdomen or pelvis. 2. A 5 mm nonobstructive left renal stone. No hydronephrosis. 3. A large amount of stool in colon. 4. Mild concentric thickening at the gastroesophageal junction. Consider esophagram or EGD for follow-up Dictated by: Santo Oliveros M.D. on 04/13/2024 at 22:19 Approved by: Santo Oliveros M.D. on 04/13/2024 at 22:23
--- NOTE | 2024-04-13 21:38 | ED.ABDPAIN ---
HPI - Abdominal Pain General Chief Complaint: Abdominal Pain Stated Complaint: abd pain, chills, headache Time Seen by Provider: 04/13/24 20:02 Mode of arrival: Ambulatory History of Present Illness HPI narrative: 68-year-old female presents for evaluation of lower quadrant abdominal pain for 1 week. Patient states she went to the walk-in clinic earlier concerned that she may have gotten a urinary tract infection. She was discharged on antibiotics, but later received a call stating that her urine did not have an infection. Patient has had continued pain and so she decided to present today for evaluation. She denies nausea or vomiting, Related Data Home Medications Medication Instructions Recorded Confirmed MAGNESIUM (#ELITE MAGNESIUM) 1 tab PO DAILY ##0 07/14/11 04/10/24 omega 6-pzh-bga-fish oil 1,000 mg 1,000 mg PO Q DAY ##0 09/28/11 04/10/24 (120 mg-180 mg) capsule (Fish Oil) multivitamin 1 tab PO DAILY ##0 09/28/12 04/10/24 gabapentin 300 mg capsule 600 mg PO QDAY ##0 02/01/17 04/10/24 (Neurontin) duloxetine 30 mg capsule,delayed 2 cap PO BEDTIME 05/04/18 04/10/24 release simvastatin 20 mg tablet 20 mg PO QAM 05/04/18 04/10/24 cholecalciferol (vitamin D3) 25 25 mcg PO DAILY 02/28/23 04/10/24 mcg (1,000 unit) capsule (Vitamin D3) cyanocobalamin-liver extract tablet 1 tab PO DAILY 02/28/23 04/10/24 lisinopril 10 mg tablet 10 mg PO DAILY 02/28/23 04/10/24 zinc 10 mg tablet 10 mg PO DAILY 02/28/23 04/10/24 Previous Rx's Medication Instructions Recorded epinephrine 0.3 mg/0.3 mL 0.3 mg (0.3 mL) IM Q5-15M PRN 06/19/21 injection, auto-injector (EpiPen anaphylaxis #2 ea 2-Harsha) nitrofurantoin 100 mg PO Q12H 7 days #14 caps 04/10/24 monohydrate/macrocrystals 100 mg capsule (Macrobid) Allergies Allergy/AdvReac Type Severity Reaction Status Date / Time bee venom protein (honey bee) Allergy Severe Difficulty Verified 04/10/24 10:00 Swallowing nirmatrelvir AdvReac Unknown Hives Verified 04/10/24 10:00 [From Paxlovid (EUA)] ritonavir AdvReac Unknown Hives Verified 04/10/24 10:00 [From Paxlovid (EUA)] Review of Systems Review of Systems Narrative: See HPI Patient History Medical History Fibromyalgia Age related osteoporosis Surgical History Status post right breast lumpectomy Family History Father Diabetes mellitus Grandmother Diabetes mellitus Social History household members: friend(s) Smoking Status: Never smoker alcohol intake: current substance use type: does not use Smoking Status: Never smoker alcohol intake frequency: a few times a week Substance Use Type: does not use Exam Initial Vital Signs Initial Vital Signs: Vital Signs Temperature 98.2 F 04/13/24 16:59 Pulse Rate 61 04/13/24 16:59 Respiratory Rate 18 04/13/24 16:59 Blood Pressure 122/78 04/13/24 16:59 Pulse Oximetry 100 04/13/24 16:59 Oxygen Delivery Method Room Air 04/13/24 16:59 Const: Awake, alert, no acute distress, nontoxic appearing Cardiac: regular rate, regular rhythm RESP: unlabored, clear bilaterally GI: Soft, generalized tenderness to deep palpation in the lower abdomen without rebound or guarding Skin: Warm, Dry, intact, no rashes Neuro: AO x3, CN II-XII grossly intact, moves all extremities Course Orders Ordered: ED Orders 04/13/24 21:19 CT abdomen pelvis w con Stat Discontinued Medications Ondansetron HCl (Ondansetron 4 Mg Odt) 4 mg PO NOW PRN PRN Reason: Nausea And Vomiting Ondansetron HCl (Ondansetron 4 Mg/2 Ml Inj) 4 mg IV NOW PRN PRN Reason: Nausea And Vomiting Vital Signs Vital signs: Vital Signs - 8 hr 04/13/24 22:50 04/13/24 22:51 04/13/24 22:51 Pulse Rate 57 L 56 L Blood Pressure 131/76 Pulse Oximetry 99 99 MDM - Abdominal Pain Differential Diagnosis Differential diagnosis: Likely abdominal pain, acute appendicitis and calculus of kidney Lab Data 04/13/24 17:46 04/13/24 17:46 Labs: Lab Results 04/13/24 Range/Units 17:46 WBC 5.4 (4.5-11.0) X10^3/uL RBC 4.75 (4.0-5.2) X10^6/uL Hgb 14.7 (12.0-16.0) g/dL Hct 44.4 (36-46) % MCV 93.3 (80-100) fL MCH 30.9 (26-34) PG MCHC 33.1 (30-36) % RDW 13.1 (11.6-14.8) % Plt Count 113 L (150-400) X10^3/uL Neut % (Auto) 44.0 L (50-75) % Lymph % (Auto) 44.1 H (25-40) % [place] % (Auto) 9.1 (3-14) % Eos % (Auto) 1.5 L (2-4) % Baso % (Auto) 1.3 (0-2) % Neut # (Auto) 2400 (7741-5582) /uL Lymph # (Auto) 2400 (5623-6940) /uL [place] # (Auto) 500 (0-900) /uL Eos # (Auto) 100 (0-450) /uL Baso # (Auto) 100 (0-100) /uL Sodium 136 L (137-145) mmol/L Potassium 4.9 (3.4-5.1) mmol/L Chloride 105 (98-107) mmol/L Carbon Dioxide 32 (22-32) mmol/L BUN 17 (7-17) mg/dL Creatinine 1.00 (0.52-1.04) mg/dL Estimated GFR > 60 (>60) mL/min BUN/Creatinine Ratio 17.0 (6-22) Glucose 83 (80-110) mg/dL Calcium 9.3 (8.4-10.2) mg/dL Total Bilirubin 0.8 (0.2-1.3) mg/dL AST 28 (14-36) IU/L ALT 22 (<35) IU/L Alkaline Phosphatase 50 (38-126) U/L Total Protein 6.7 (6.3-8.2) g/dL Albumin 4.3 (3.5-5.0) g/dL Globulin 2.4 (1.7-4.1) g/dL Albumin/Globulin Ratio 1.8 (1.0-2.8) Lipase 199 (23-300) U/L Urine RBC None seen (0-5/HPF) Urine WBC 1-5/hpf (0-5/HPF) Ur Squamous Epith Cells None seen (0-5/HPF) Urine Bacteria None seen (None) Ur Culture Indicated? Cult not indicated Vol Urine Centrifuged 10ml (spun) Point of care testing: Urine Dip Bedside Urine Glucose Negative Bedside Urine Bilirubin - Negative Bedside Urine Ketone - Negative Urine Specific Mcdonald 1.015 Bedside Urine Occult Blood - Negative Bedside Urine pH 7.0 Bedside Urine Protein - Negative Bedside Urine Urobilinogen - Negative Bedside Urine Nitrite - Negative Bedside Urine Leukocytes +/- [address] scan - abdomen/pelvis: Radiologist's Impression: PROCEDURE: CT ABDOMEN PELVIS W CON INDICATIONS: 1 WK SUPRAPUBIC/LLQ ABD PAIN TECHNIQUE: After the administration of intravenous contrast, axial sections acquired from the lung bases to the pubic symphysis. Coronal and sagittal reformats were performed. For radiation dose reduction, the following was used: automated exposure control, adjustment of mA and/or kV according to patient size. COMPARISON: None. FINDINGS: Image quality: Diagnostic. Lower Chest: No significant findings. Small hiatal hernia and mild concentric thickening at the gastroesophageal junction. ABDOMEN: Liver: No solid mass. Normal size. Mild hepatic steatosis. Gallbladder: No radiopaque gallstones or wall thickening. Biliary ducts: No biliary dilation. Pancreas: No ductal dilation. Spleen: Size is within normal limits. Adrenal Glands: No adrenal nodules. Kidneys and Ureters: No hydronephrosis. No solid mass. No complex renal cystic lesion which requires follow up. There is a 5 mm nonobstructive stone in the inferior pole of the left kidney. Stomach and Bowel: Normal small bowel and colonic caliber, without significant wall thickening. Fluid-filled small bowel loops demonstrate normal caliber. There is a large amount of stool in colon. Peritoneum: No abnormal intraperitoneal fluid. No free air. Ventral Wall: No significant ventral hernia. Abdominal Nodes: No retroperitoneal or mesenteric adenopathy by size criteria. Vessels: Aorta and inferior vena cava are normal in size. PELVIS: Pelvic Organs: Unremarkable. Bladder: No bladder wall thickening, accounting for underdistention. Pelvic Nodes: No enlarged lymph nodes. Miscellaneous: No inguinal hernias are seen. Bones: No aggressive osseous abnormality. Moderate to severe spondylitic changes in lumbar spine. IMPRESSION: 1. No acute abnormalities in abdomen or pelvis. 2. A 5 mm nonobstructive left renal stone. No hydronephrosis. 3. A large amount of stool in colon. 4. Mild concentric thickening at the gastroesophageal junction. Consider esophagram or EGD for follow-up Dictated by: Santo Oliveros M.D. on 04/13/2024 at 22:19 Approved by: Santo Oliveros M.D. on 04/13/2024 at 22:23 MDM Narrative Medical decision making narrative: Well-appearing patient with persistent lower abdominal pain for a week. Triage note reports fever and chills, patient states that she was not measured a temperature just felt vaguely chilled throughout the week. Afebrile on arrival. Laboratory work and imaging will be obtained. Patient declines pain medication at this time. Laboratory work is reviewed, no leukocytosis, normal hemoglobin, normal electrolytes, normal kidney function, normal liver enzymes. CT of the abdomen and pelvis shows no acute findings, there was a nonobstructing renal stone, large amount of stool in the colon. Discussed results of all labs and imaging at this time. Patient states that 1 of her biggest concerns for coming to the emergency department is concerned that she may have a cancer or mass inside of her. She states that she has had colonoscopies in the past in his had a clean bill of health from the colonoscopy standpoint. Patient was advised that she may take daily stool softeners as needed for discomfort. ED return precautions discussed. Follow up with primary care doctor advised. Discharge Plan Departure Patient Disposition: Home Clinical Impression: Abdominal pain Instructions: DI for Abdominal Pain-Adult Activity Restrictions/Additional Instructions: Your laboratory work today did not show any obvious abnormalities. Your CT today did not show any mass, infection, or blockage. It was noted that you have a large amount of stool in your colon, which could be contributing to your symptoms. Take a daily stool softener such as MiraLax, milk of magnesia, senna, or docusate. Goal is to have 1 soft bowel movement daily. Follow up as scheduled with your primary care physician. Prescriptions: No Action nitrofurantoin monohyd/m-cryst [Macrobid] 100 mg capsule 100 mg PO Q12H 7 Days Qty: 14 0RF Rx Instructions: must administer with a meal/food MAGNESIUM (#ELITE MAGNESIUM) 1 tab PO DAILY Qty: 0 omega 3-fff-wjm-fish oil [Fish Oil] 1,000 mg (120 mg-180 mg) Capsule 1,000 mg PO Q DAY Qty: 0 multivitamin Tablet 1 tab PO DAILY Qty: 0 gabapentin [Neurontin] 300 MG capsule 600 mg PO QDAY Qty: 0 simvastatin 20 mg tablet 20 mg PO QAM Patient Comments: take 1 tablet by mouth every evening duloxetine 30 mg capsule,delayed release(DR/EC) 2 cap PO BEDTIME lisinopril 10 mg Tablet 10 mg PO DAILY zinc 10 mg Tablet 10 mg PO DAILY cholecalciferol (vitamin D3) [Vitamin D3] 25 mcg (1,000 unit) Capsule 25 mcg PO DAILY Vitamin G60-Uiodg Tablet 1 tab PO DAILY epinephrine [EpiPen 2-Harsha] 0.3 mg/0.3 mL auto-injector 0.3 mg IM Q5-15M PRN (Reason: anaphylaxis) Qty: 2 0RF Rx Instructions: do not exceed 3 doses per episode Referrals: Kristen Amador PA-C [Primary Care Provider] - Stand Alone Forms: Patient Portal/API
== END 2024-04-13 22:54 | disposition home or self-care (01) ==
PROVIDERS: Emergency Medicine; Emergency Provider Emergency Medicine; PCP Physician Assistant
DX: R10.32 Left lower quadrant pain (principal); Z79.899 Other long term (current) drug therapy
CPT/HCPCS: 36415; 74177; 80053; 81003; 81015; 83690; 85025; 93005; 99283; 99284; Q9967

== ENCOUNTER → 2024-09-18 11:34 | Outpatient (CLI) | payer MEDICARE, SELFPAY ==
--- NOTE | 2024-09-18 11:36 | DI.RAD.S_ITS ---
PROCEDURE: XR RIBS LT MIN 3V W CXR1V INDICATIONS: fell 09/12, pain/bruising lower left side TECHNIQUE: 2 views of the ribs were acquired, along with a single view chest. COMPARISON: None. FINDINGS: Heart, mediastinum and pulmonary vascular: Heart is normal in size and configuration. Mediastinum is unremarkable. Pulmonary vascular is normal. Lungs: Clear Pleural spaces: Normal-no effusions or pneumothorax. Bones and soft tissues: Acute nondisplaced fracture of the anterior lateral left 10th rib noted IMPRESSION: Acute nondisplaced fracture anterior lateral left 10th rib. Otherwise normal chest Dictated by: Nelson Ruiz M.D. on 09/19/2024 at 10:05 Approved by: Nelson Ruiz M.D. on 09/19/2024 at 10:07
== END ==
PROVIDERS: PCP Physician Assistant; Referring Provider Physician Assistant; Visit Provider Physician Assistant
DX: S22.32XA Fracture of one rib, left side, initial encounter for closed fracture (principal); S29.9XXA Unspecified injury of thorax, initial encounter; R55 Syncope and collapse; W19.XXXA Unspecified fall, initial encounter
CPT/HCPCS: 71101

== ENCOUNTER → 2024-09-19 12:25 | Outpatient (CLI) | payer MEDICARE, SELFPAY ==
[2024-09-19 13:15] LABS: Add Manual Diff / Slide Review NO; Basophils Absolute Auto 0 /uL (0-100); Basophils Percent Auto 0.9 % (0-2); Eosinophils Absolute Auto 100 /uL (0-450); Eosinophils Percent Auto 1.5 % (2-4); Hematocrit 41.8 % (36-46); Hemoglobin 13.9 g/dL (12.0-16.0); Lymphocytes Absolute Auto 2000 /uL (1100-4500); Lymphocytes Percent Auto 43.1 % (25-40); Mean Corpuscular HGB Conc 33.4 % (30-36); Mean Corpuscular Hemoglobin 31.3 PG (26-34); Mean Corpuscular Volume 93.8 fL (80-100); Monocytes Absolute Auto 300 /uL (0-900); Monocytes Percent Auto 6.7 % (3-14); Neutrophils Absolute Auto 2300 /uL (1500-7000); Neutrophils Percent Auto 47.8 % (50-75); Platelet Count 137 X10^3/uL (150-400); Red Blood Cell Count 4.45 X10^6/uL (4.0-5.2); Red Cell Distribution Width 13.2 % (11.6-14.8); White Blood Cell Count 4.8 X10^3/uL (4.5-11.0)
[2024-09-19 13:36] LABS: Alanine Aminotransferase 18 IU/L (<35); Albumin Globulin Ratio 1.6 (1.0-2.8); Alkaline Phosphatase 57 U/L (38-126); Aspartate Aminotransferase 24 IU/L (14-36); BUN Creatinine Ratio 15.4 (6-22); Bilirubin Total 0.6 mg/dL (0.2-1.3); Blood Urea Nitrogen 12 mg/dL (7-17); Calcium 8.9 mg/dL (8.4-10.2); Carbon Dioxide 26 mmol/L (22-32); Chloride 105 mmol/L (98-107); Estimated Glomerular Filt Rate > 60 mL/min (>60); Globulin 2.5 g/dL (1.7-4.1); Glucose 92 mg/dL (80-110); HEMOLYSIS < 15 (0-50); Potassium 4.3 mmol/L (3.4-5.1); Sodium 136 mmol/L (137-145); Total Protein 6.5 g/dL (6.3-8.2)
[2024-09-19 14:06] LABS: TSH w/ Reflex to FT4 0.91 uIU/mL (0.47-4.68)
== END ==
PROVIDERS: PCP Physician Assistant; Referring Provider Physician Assistant; Visit Provider Physician Assistant
DX: R55 Syncope and collapse (principal); S22.32XD Fracture of one rib, left side, subsequent encounter for fracture with routine healing; S06.0X0D Concussion without loss of consciousness, subsequent encounter; S16.1XXD Strain of muscle, fascia and tendon at neck level, subsequent encounter
CPT/HCPCS: 36415; 80053; 84443; 85025

== ENCOUNTER 2024-10-02 19:01 | Emergency (ER) | payer MEDICARE, SELFPAY ==
[2024-10-02 19:13] VITALS: BP 109/71; PULSE 71; RESP 16; TEMP 36.6; O2SAT 99; BMI 27.4
--- NOTE | 2024-10-02 21:08 | PC.NURSE ---
Patient notified registration that they were leaving at [id number]
== END 2024-10-02 20:59 | disposition home or self-care (01) ==
PROVIDERS: Emergency Provider Emergency Medicine; PCP Physician Assistant
CPT/HCPCS: 99281

== ENCOUNTER → 2024-10-03 12:19 | Outpatient (CLI) | payer MEDICARE, SELFPAY ==
--- NOTE | 2024-10-03 12:21 | DI.MRI.S_ITS ---
PROCEDURE: MR HEAD/BRAIN WO CON INDICATIONS: Syncope and collapse TECHNIQUE: Non-contrast axial T1 spin echo, axial T2 fast spin echo, sagittal and axial FLAIR, coronal T2 fast spin echo, axial gradient echo, axial diffusion and ADC through the brain. COMPARISON: None. FINDINGS: Image quality: Excellent. CSF spaces: Ventricles appear symmetric in size and shape. Basal cisterns are patent. No extra-axial fluid collections. Brain: No intracranial bleeds or mass effects. There is cerebral volume loss for age. There are periventricular and deep white matter chronic small vessel ischemic changes. Brainstem appears normal. Diffusion-weighted images show no acute infarct. No chronic ischemic insults. Normal intravascular flow voids are present. Skull and face: Calvarial bone marrow is normal in signal. Orbits are normal. Sinuses: Sinuses and mastoids are clear. IMPRESSION: 1. No acute process. No recent infarct. 2. Volume loss and small vessel ischemic disease. Dictated by: Alva Mcintosh M.D. on 10/03/2024 at 13:43 Approved by: Alva Mcintosh M.D. on 10/03/2024 at 13:55
== END ==
LOC: MRI 12:20
PROVIDERS: PCP Physician Assistant; Referring Provider Physician Assistant; Visit Provider Physician Assistant
DX: R55 Syncope and collapse (principal); F07.81 Postconcussional syndrome; H53.8 Other visual disturbances; G44.89 Other headache syndrome
CPT/HCPCS: 70551

== ENCOUNTER → 2024-11-26 17:12 | Outpatient (CLI) | payer MEDICARE, SELFPAY ==
--- NOTE | 2024-11-26 17:14 | DI.MG.S_ITS ---
BILATERAL DIGITAL SCREENING MAMMOGRAM 3D/2D WITH CAD: 11/26/2024 CLINICAL: Routine screening. Family history of breast cancer. Comparison is made to exams dated: 11/16/2023 mammogram, 11/11/2022 mammogram, and 10/23/2021 mammogram - [facility]. There are scattered areas of fibroglandular density (category b / 25%-50% glandular tissue). Current study was also evaluated with a Computer Aided Detection (CAD) system. There are benign post operative findings in the right breast. No significant masses, calcifications, or other findings are seen in either breast. There has been no significant interval change. IMPRESSION: BENIGN There is no mammographic evidence of malignancy. A 1 year screening mammogram is recommended. Based on the Tyrer Cuzick model (a risk assessment model) the patient's lifetime risk is 8.8% and her 10 year risk is 5.6%. According to the ACR, ACS, and NCCN guidelines, an annual breast MRI exam along with mammogram is recommended if the patient's lifetime risk is 20% or greater. This exam was interpreted at Station ID: [id number]. NOTE: For mammograms, a report in lay terms will be sent to the patient. Approximately 15% of breast malignancies will not be visualized mammographically. In the management of a palpable breast mass, a negative mammogram must not discourage biopsy of a clinically suspicious lesion. Electronically Signed By: Nataliya sequeira/chhaya:11/28/2024 16:19:16 letter sent: Normal Exam ACR BI-RADS Category 2: Benign
== END ==
LOC: MAMMO 17:13
PROVIDERS: PCP Physician Assistant; Referring Provider Physician Assistant; Visit Provider Physician Assistant
DX: Z12.31 Encounter for screening mammogram for malignant neoplasm of breast (principal); Z80.3 Family history of malignant neoplasm of breast
CPT/HCPCS: 77063; 77067

== ENCOUNTER → 2024-12-06 08:03 | Outpatient (CLI) | payer MEDICARE, SELFPAY ==
--- NOTE | 2024-12-06 | DI.ECHO.S_ITS ---
[place] [facility]+ [facility] : : [address] : : [place] : : [id number] : : Phone: [phone] Echocardiogram Report + + :Name: HÉCTOR VLEIZ Study Date: 12/06/2024 Height: 66 in : :[facility] ReadingLocation: Weight: 170 lb : : Gender: Female BSA: 1.9 m2 : :: 1955 Age: 69 yrs BP: 133/99 mmHg: :Reason For Study: SYNCOPE : :Ordering Physician: TAINA, : :YE Performed By: Wesley Jackson : :Referring: YE HER : + + Interpretation Summary 1) Normal left ventricular thickness, size, wall motion, and systolic function (EF 55-60%). 2) Normal right ventricular size and function. 3) No significant valvular abnormalities. 4) No prior Echo available for comparison. Procedure: A two-dimensional transthoracic echocardiogram with color flow and Doppler was performed. The study quality was technically good. There is no prior echocardiogram noted for this patient. The patient was in normal sinus rhythm during the exam. Left Ventricle: The left ventricle is normal in size. There is normal left ventricular wall thickness. There is no ventricular septal defect visualized. The ejection fraction is estimated to be 55-60%. There are no focal wall motion abnormalities. Diastolic parameters suggest a relaxation abnormality of the left ventricle, consistent with probable normal filling pressures. Right Ventricle: The right ventricle is normal in size and function. Atria: The left atrial size is normal. Right atrial size is normal. There is no Doppler evidence for an interatrial shunt. Mitral Valve: The mitral valve leaflets appear normal. There is no evidence of stenosis, fluttering, or prolapse. There is trace mitral regurgitation. Aortic Valve: The aortic valve is trileaflet. The aortic valve opens well. There is no aortic valve stenosis. No aortic regurgitation is present. Tricuspid Valve: The tricuspid valve leaflets are thin and pliable. There is trace tricuspid regurgitation. The right ventricular systolic pressure is estimated to be at least 23 mmHg based on an estimated right atrial pressure of 3 mm Hg. Pulmonic Valve: The pulmonic valve is not well visualized. There is trace pulmonic regurgitation. Great Vessels: The aortic root is normal size. The aortic arch is at the upper limits of normal in size. The ascending aorta is at the upper limits of normal in size. The pulmonary artery is normal size. The IVC is of normal diameter and collapses greater than 50% with a sniff. This suggests a low right atrial pressure of 3 mm Hg. Pericardium/ Pleura There is no pericardial effusion. There is no pleural effusion. MMode/2D Measurements & Calculations LVIDd: 4.5 cm LVOT diam: 1.8 cm LVIDs: 2.9 cm Ao root diam: 3.0 cm FS: 35.6 % asc Aorta Diam: 3.7 cm EPSS: 0.81 cm Ao Arch Diam (Prox Trans): 2.3 cm IVSd: 1.0 cm LVPWd: 0.76 cm LV goodwin. diameter/BSA (cm/m^2): 2.4 LV sys. diameter/BSA (cm/m^2): 1.6 LA A2 area: 15.6 cm2 RA long axis: 4.7 cm LA A4 area: 20.4 cm2 RA area: 13.6 cm2 LA length (vol): 5.3 cm RA vol: 33.5 ml LA vol: 50.7 ml RA : 17.9 ml/m2 LA vol index: 27.2 ml/m2 IVC diam: 1.6 cm RVD1 (basal): 2.8 cm RVD2 (mid): 2.6 cm TAPSE: 1.7 cm Doppler Measurements & Calculations Ao V2 max: 133.3 cm/sec LVOT Max Niall: 127.7 cm/sec Ao V2 mean: 90.4 cm/sec LV V1 max P.5 mmHg Ao max P.1 mmHg LV V1 VTI: 28.2 cm Ao mean P.6 mmHg BRAYDON(I,D): 2.5 cm2 Ao V2 VTI: 30.3 cm BRAYDON(V,D): 2.5 cm2 sev ratio: 0.93 BRAYDON indexed to BSA (cm^2/m^2): 1.3 MV E max niall: 40.7 cm/sec TR max niall: 222.9 cm/sec MV A max niall: 69.4 cm/sec TR max P.9 mmHg MV E/A: 0.59 PA V2 max: 75.7 cm/sec Med Peak E' Niall: 4.2 cm/sec PA V2 mean: 49.6 cm/sec E/E' med: 9.8 PA mean P.1 mmHg Lat Peak E' Niall: 6.8 cm/sec PA pr(Accel): 29.3 mmHg E/E' lat: 5.9 E/e' average: 7.9 MV dec time: 0.37 sec SV(LVOT): 74.5 ml Reading Physician:02:36 PM
== END ==
PROVIDERS: PCP Physician Assistant; Referring Provider Internal Medicine Cardiovascular Disease; Visit Provider Internal Medicine Cardiovascular Disease
DX: R55 Syncope and collapse (principal)
CPT/HCPCS: 93306

== ENCOUNTER → 2024-12-28 14:13 | Outpatient (CLI) | payer MEDICARE, SELFPAY ==
[2024-12-28 14:43] LABS: Add Manual Diff / Slide Review NO; Basophils Absolute Auto 0 /uL (0-100); Basophils Percent Auto 0.8 % (0-2); Eosinophils Absolute Auto 100 /uL (0-450); Hematocrit 44.3 % (36-46); Hemoglobin 14.9 g/dL (12.0-16.0); Lymphocytes Absolute Auto 2400 /uL (1100-4500); Lymphocytes Percent Auto 39.9 % (25-40); Mean Corpuscular HGB Conc 33.7 % (30-36); Mean Corpuscular Volume 91.9 fL (80-100); Monocytes Absolute Auto 500 /uL (0-900); Monocytes Percent Auto 7.7 % (3-14); Neutrophils Absolute Auto 3100 /uL (1500-7000); Neutrophils Percent Auto 50.6 % (50-75); Platelet Count 170 X10^3/uL (150-400); Red Blood Cell Count 4.82 X10^6/uL (4.0-5.2); Red Cell Distribution Width 12.5 % (11.6-14.8)
[2024-12-28 15:26] LABS: BUN Creatinine Ratio 18.6 (6-22); Blood Urea Nitrogen 16 mg/dL (7-17); Calcium 9.9 mg/dL (8.4-10.2); Carbon Dioxide 28 mmol/L (22-32); Chloride 102 mmol/L (98-107); Estimated Glomerular Filt Rate > 60 mL/min (>60); Glucose 94 mg/dL (80-110); HEMOLYSIS < 15 (0-50); Potassium 4.8 mmol/L (3.4-5.1); Sodium 137 mmol/L (137-145)
== END ==
PROVIDERS: PCP Physician Assistant; Referring Provider Internal Medicine Cardiovascular Disease; Visit Provider Internal Medicine Cardiovascular Disease
DX: R55 Syncope and collapse (principal)
CPT/HCPCS: 36415; 80048; 85025

== ENCOUNTER → 2025-01-11 10:07 | Outpatient (CLI) | payer MEDICARE, SELFPAY ==
--- NOTE | 2025-01-11 10:08 | DI.RAD.S_ITS ---
PROCEDURE: XR DEXA AXIAL SKELETON INDICATIONS: ASYMPTOMATIC POSTMENOPAUSAL STATE COMPARISON: [facility], CR, XR DEXA AXIAL SKELETON, 12/03/2019, 13:08. FINDINGS: Lumbar Spine: Bone mineral density 0.721 g/cm2, T score -2.8. There is interval 12.7% decrease in total lumbar spine bone mineral density. Left Femoral Neck: Bone mineral density 0.619 g/cm2, T score -2.1. There is interval 5.7% decrease in left femoral neck bone mineral density. Left Hip: Bone mineral density 0.764 g/cm2, T score -1.5. There is interval 4.7% decrease in left total hip bone mineral density. Fracture Risk Calculation (when applicable): 10-year fracture risk of a major osteoporotic fracture 28 percent and of a hip fracture 6.4 percent. (T score greater or equal to -1.0 to: NORMAL) (T score from -1.1 to -2.4: OSTEOPENIA) (T score less than or equal to -2.5: OSTEOPOROSIS) IMPRESSION: Osteoporosis. Follow-up guidelines as follows: Osteoporosis: Consider a repeat DEXA and Vertebral Fracture Assessment (VFA) exam in 2 years or sooner if medically necessary, to reassess this patient's status. Osteopenia: Consider a repeat DEXA in 2-3 years to reassess this patient's status, or if there is a new clinical indication. Normal: Consider a repeat DEXA in 5 years or sooner, or if there is a new clinical indication. All treatment decisions require clinical judgment and consideration of individual patient factors, including patient preferences, comorbidities, previous drug use, risk factors not captured in the FRAX model (e.g., frailty, falls, vitamin D deficiency, increased bone turnover, interval significant decline in bone density ) and possible under- or over-estimation of fracture risk by FRAX. In addition, the NOF Guide recommends that FDA-approved medical therapies be considered in postmenopausal women and men age >= 50 years with a: * Hip or vertebral (clinical or morphometric) fracture * T-score of <=-2.5 at the spine or hip * Ten-year fracture probability by FRAX of >= 3% for hip fracture or >=20% for major osteoporotic fracture. Dictated by: Michael Avila M.D. on 01/11/2025 at 13:45 Approved by: Michael Avila M.D. on 01/11/2025 at 13:46
== END ==
PROVIDERS: PCP Physician Assistant; Referring Provider Physician Assistant; Visit Provider Physician Assistant
DX: Z78.0 Asymptomatic menopausal state (principal); M81.0 Age-related osteoporosis without current pathological fracture
CPT/HCPCS: 77080

== ENCOUNTER → 2025-01-30 11:09 | Outpatient (CLI) | payer MEDICARE, SELFPAY ==
--- NOTE | 2025-01-30 11:12 | DI.RAD.S_ITS ---
PROCEDURE: XR CERVICAL SPINE 2V OR 3V INDICATIONS: NECK PAIN TECHNIQUE: 3 view(s) of the cervical spine were acquired. COMPARISON: [facility], CR, XR CERVICAL SPINE 4V OR 5V, 10/25/2018, 16:06. FINDINGS AND IMPRESSION: Moderate spondylotic changes, with arthropathy, osteophytes, and disc space height loss, worst at C4-C5 and C5-C6. This is progressed compared to 2018 radiographs. No acute fracture or dislocation. No significant prevertebral soft tissue swelling. If there is high concern for further derangement, consider MRI evaluation. Dictated by: Charanjit Huddleston M.D. on 01/30/2025 at 13:34 Approved by: Charanjit Huddleston M.D. on 01/30/2025 at 13:35
== END ==
LOC: RAD 11:11
PROVIDERS: PCP Physician Assistant; Referring Provider Family Medicine; Visit Provider Family Medicine
DX: M54.2 Cervicalgia (principal); M47.812 Spondylosis without myelopathy or radiculopathy, cervical region; M25.78 Osteophyte, vertebrae
CPT/HCPCS: 72040

== ENCOUNTER → 2025-10-25 13:27 | Outpatient (CLI) | payer MEDICARE, SELFPAY ==
--- NOTE | 2025-10-25 13:29 | DI.RAD.S_ITS ---
PROCEDURE: XR CHEST 2V INDICATIONS: Cough TECHNIQUE: 2 views of the chest were acquired. COMPARISON: [facility], CR, XR CHEST 2V, 06/01/2023, 13:30. [facility], CR, XR CHEST 1V, 08/02/2022, 12:36. FINDINGS: Surgical changes and devices: Left paramedian implanted cardiac monitoring device.. Lungs and pleura: Lungs are clear. No pleural effusions or pneumothorax. Mediastinum: Mediastinal contours are normal. Heart size is normal. Bones and chest wall: No suspicious bony abnormalities. Soft tissues appear unremarkable. IMPRESSION: No acute cardiopulmonary abnormality is seen. Implanted anterior cardiac monitoring device now present. Dictated by: Theo Garrido M.D. on 10/25/2025 at 13:46 Approved by: Theo Garrido M.D. on 10/25/2025 at 13:47
== END ==
PROVIDERS: PCP Physician Assistant; Referring Provider Nurse Practitioner Family; Visit Provider Nurse Practitioner Family
DX: R05.1 Acute cough (principal)
CPT/HCPCS: 71046; 87637

== ENCOUNTER → 2025-10-25 13:30 | Outpatient (CLI) | payer MEDICARE, SELFPAY ==
[2025-10-25 14:18] LABS: Influenza A - CEPHEID Flu A NEGATIVE (NEGATIVE); Influenza B - CEPHEID Flu B NEGATIVE (NEGATIVE)
[2025-10-25 14:19] LABS: COVID-19 CEPHEID 4-PLEX PCR Negative (Negative)
== END ==
PROVIDERS: PCP Physician Assistant; Visit Provider Nurse Practitioner Family
DX: R05.1 Acute cough (principal)
CPT/HCPCS: 87637